=== PATIENT | female | born 1960 | race Caucasian/White ===

== ENCOUNTER 2020-11-09 15:41 | Outpatient (REF) | payer OTHER, SELFPAY ==
--- NOTE | ~2020-11-09 | XR_ITS ---
EXAMINATION: XR HIP, RIGHT CLINICAL INFORMATION: Right hip pain. COMPARISON: Pelvis radiograph 04/04/2015 and right hip 02/16/2015. TECHNIQUE: Two views of the right hip. FINDINGS: Degenerative changes are noted in the right hip with narrowing predominantly superiorly along with sclerosis and osteophytes consistent with degenerative change. Similar findings were present in 2014 but these appear to have progressed slightly with slightly more joint space narrowing. No fractures or bony destructive lesions seen. XR/XR hip RT min 2V IMPRESSION: Slight worsening of degenerative changes, right hip.
[2020-11-09 16:37] LABS: Glucose Urine UA NEG (NEG); Leukocyte Esterase Urine NEG (NEG); Nitrite Urine NEG (NEG); PH 7.5 (5.0-8.0); Urine Blood NEG (NEG); Urine Ketones NEG (NEG); Urine Protein NEG (NEG-TRACE)
[2020-11-09 16:43] LABS: Appearance Urine CLEAR; Color Urine YELLOW
== END 2020-11-09 15:42 | disposition home or self-care (01) ==
LOC: HO.LAB 15:41
PROVIDERS: PCP Internal Medicine; Visit Provider Internal Medicine
DX: M25.551 Pain in right hip (principal); R30.0 Dysuria; Z87.898 Personal history of other specified conditions
CPT/HCPCS: 73502; 81003; 87086

== ENCOUNTER 2020-11-16 17:38 | Outpatient (REF) | payer OTHER, SELFPAY ==
[2020-11-16 18:18] LABS: MANUAL DIFF FLAG NO
[2020-11-16 18:20] LABS: Basophils Percent Auto 0.4 % (0-2); Eosinophils Absolute Auto 0.2 X10*3/uL (0.0-0.4); Hematocrit 35.9 % (37-47); Hemoglobin 12.3 g/dl (12.0-16.0); Imm Gran Abs Auto 0.01 X10*3/uL (0.00-0.03); Imm Gran Pct Auto 0.1 % (0.0-0.4); Lymphocytes Absolute Auto 2.3 X10*3/uL (1.2-4.9); Lymphocytes Percent Auto 30.7 % (20-40); Mean Corpuscular HGB Conc 34.3 g/dl (31.0-35.0); Mean Corpuscular Hemoglobin 30.8 pg (27.0-33.0); Mean Platelet Volume 11.1 fL (9.4-12.3); Monocytes Absolute Auto 0.5 X10*3/uL (0.1-1.2); Monocytes Percent Auto 6.9 % (2-11); Neutrophils Absolute Auto 4.4 X10*3/uL (2.0-8.3); Neutrophils Percent Auto 59.9 % (45-73); Platelet Count 273 X10*3/uL (160-400); Red Blood Count 3.99 X10*6/uL (4.20-5.50); Red Cell Distribution Width 13.1 % (11.0-16.0); White Blood Count 7.4 X10*3/uL (4.8-10.8)
[2020-11-16 18:46] LABS: Alanine Aminotransferase 11 U/L (0-31); Albumin Level 3.9 g/dL (3.5-5.0); Alkaline Phosphatase 34 U/L (39-117); Anion Gap 15 (12-20); Aspartate Amino Transferase 14 U/L (5-31); Bilirubin Total 0.4 mg/dL (0.0-1.0); Blood Urea Nitrogen 16 mg/dL (9-16); Calcium 9.5 mg/dL (8.4-10.2); Carbon Dioxide 26 mmol/L (22-29); Chloride 102 mmol/L (96-108); Estimated Glomerular Filt Rate 57; Glucose Random 85 mg/dL (60-115); Potassium 4.7 mmol/L (3.3-5.1); Sodium 138 mmol/L (135-145)
[2020-11-16 19:08] LABS: T4 Thyroxine 12.4 ug/dL (4.5-12.0); Thyroid Stimulating Hormone 1.13 uIU/mL (0.32-4.0)
[2020-11-18 07:12] LABS: Thyroid Peroxidase Antibodies 13 IU/mL (<9)
== END 2020-11-16 17:39 | disposition home or self-care (01) ==
LOC: HO.LAB 17:38
PROVIDERS: PCP Internal Medicine; Visit Provider Internal Medicine
DX: R53.83 Other fatigue (principal); E03.9 Hypothyroidism, unspecified; E06.3 Autoimmune thyroiditis; N18.9 Chronic kidney disease, unspecified
CPT/HCPCS: 36415; 80053; 84436; 84443; 84481; 85025; 86376

== ENCOUNTER 2020-11-19 10:02 | Outpatient (REF) | payer OTHER, SELFPAY ==
[2020-11-19 12:01] LABS: Free T4 (Free Thyroxine) 1.24 ng/dL (0.71-1.85)
== END 2020-11-19 10:03 | disposition home or self-care (01) ==
LOC: HO.LAB 10:02
PROVIDERS: PCP Internal Medicine; Visit Provider Internal Medicine
DX: E03.9 Hypothyroidism, unspecified (principal)
CPT/HCPCS: 36415; 84439

== ENCOUNTER 2021-01-04 13:20 | Outpatient (REF) | payer OTHER, SELFPAY ==
[2021-01-04 14:50] LABS: Free T4 (Free Thyroxine) 0.95 ng/dL (0.71-1.85); Thyroid Stimulating Hormone 0.19 uIU/mL (0.32-4.0)
[2021-01-06 21:41] LABS: Triiodothyronine T3 Free 2.3 pg/mL (2.3-4.2)
== END 2021-01-04 13:21 | disposition home or self-care (01) ==
LOC: HO.LAB 13:20
PROVIDERS: PCP Internal Medicine; Visit Provider Internal Medicine
DX: E03.9 Hypothyroidism, unspecified (principal)
CPT/HCPCS: 36415; 84439; 84443; 84481

== ENCOUNTER → 2021-03-16 10:57 | Outpatient (BNVA) | payer OTHER, SELFPAY | PROVIDERS: PCP Internal Medicine; Referring Provider Internal Medicine; Visit Provider Surgery ==

== ENCOUNTER 2021-04-26 | Outpatient (REF) | payer OTHER, SELFPAY ==
--- NOTE | ~2021-04-26 | XR_ITS ---
EXAMINATION: XR CHEST CLINICAL INFORMATION: Shortness of breath COMPARISON: Previous chest x-ray JulyJuly 2016 TECHNIQUE: 2 views of the chest were obtained. FINDINGS: No significant abnormality is noted involving the heart, lungs, mediastinum, bony thorax or soft tissues. XR/XR chest 2V IMPRESSION: Unremarkable examination.
[2021-04-26 08:28] LABS: Basophils Percent Auto 0.5 % (0-2); Hemoglobin 12.8 g/dl (12.0-16.0); MANUAL DIFF FLAG SCAN; PLT CLUMP 1; Red Cell Distribution Width 13.1 % (11.0-16.0); SCAN SMEAR FLAG 1
[2021-04-26 08:30] LABS: Eosinophils Absolute Auto 0.2 X10*3/uL (0.0-0.4); Eosinophils Percent Auto 2.5 % (0-4); Hematocrit 38.1 % (37.0-47.0); Imm Gran Abs Auto 0.03 X10*3/uL (0.00-0.03); Imm Gran Pct Auto 0.4 % (0.0-0.4); Lymphocytes Percent Auto 24.1 % (20-40); Mean Corpuscular HGB Conc 33.6 g/dl (31.0-35.0); Mean Corpuscular Hemoglobin 30.5 pg (27.0-33.0); Mean Corpuscular Volume 90.7 fL (80.0-98.0); Monocytes Absolute Auto 0.6 X10*3/uL (0.1-1.2); Monocytes Percent Auto 6.7 % (2-11); Neutrophils Absolute Auto 5.4 x10*3/uL (2.0-8.3); Neutrophils Percent Auto 65.8 % (45-73); Platelet Count 286 X10*3/uL (160-400); White Blood Count 8.2 X10*3/uL (4.8-10.8)
[2021-04-26 08:50] LABS: Cholesterol 222 mg/dL; HDL Cholesterol 57 mg/dL; LDL Cholesterol Calculated 127 mg/dl; Triglycerides 190 mg/dL
[2021-04-26 09:14] LABS: Free T4 (Free Thyroxine) 1.21 ng/dL (0.71-1.85); Thyroid Stimulating Hormone 1.85 uIU/mL (0.32-4.0)
[2021-04-27 11:36] LABS: Thyroid Peroxidase Antibodies 12 IU/mL (<9)
[2021-04-27 18:17] LABS: Triiodothyronine T3 Free 2.1 pg/mL (2.3-4.2)
== END 2021-04-26 00:01 | disposition home or self-care (01) ==
LOC: HO.LAB
PROVIDERS: PCP Internal Medicine; Visit Provider Internal Medicine
DX: E03.9 Hypothyroidism, unspecified (principal); R06.02 Shortness of breath
CPT/HCPCS: 36415; 71046; 80061; 84439; 84443; 84481; 85025; 86376

== ENCOUNTER 2021-05-26 13:57 | Outpatient (REF) | payer OTHER, SELFPAY ==
[2021-05-26 15:23] LABS: Alanine Aminotransferase 12 U/L (0-31); Alkaline Phosphatase 34 U/L (39-117); Anion Gap 14 (12-20); Aspartate Amino Transferase 14 U/L (5-31); Bilirubin Total 0.3 mg/dL (0.0-1.0); Blood Urea Nitrogen 15 mg/dL (9-16); Calcium 9.6 mg/dL (8.4-10.2); Carbon Dioxide 29 mmol/L (22-29); Chloride 102 mmol/L (96-108); Estimated Glomerular Filt Rate 59; Glucose Random 95 mg/dL (60-115); Potassium 4.5 mmol/L (3.3-5.1); Sodium 140 mmol/L (135-145); Total Protein 7.5 g/dL (6.5-8.0)
[2021-05-27 15:31] LABS: Triiodothyronine T3 Free 2.2 pg/mL (2.3-4.2)
== END 2021-05-26 13:58 | disposition home or self-care (01) ==
LOC: HO.LAB 13:57
PROVIDERS: PCP Internal Medicine; Visit Provider Internal Medicine
DX: K21.9 Gastro-esophageal reflux disease without esophagitis (principal); E03.9 Hypothyroidism, unspecified; N18.9 Chronic kidney disease, unspecified
CPT/HCPCS: 36415; 80053; 84481

== ENCOUNTER 2021-09-28 07:28 | Outpatient (REF) | payer BC, SELFPAY ==
[2021-09-28 07:44] LABS: MANUAL DIFF FLAG NO
[2021-09-28 08:07] LABS: Basophils Percent Auto 0.5 % (0-2); Eosinophils Absolute Auto 0.2 X10*3/uL (0.0-0.4); Eosinophils Percent Auto 1.9 % (0-4); Hematocrit 37.5 % (37.0-47.0); Hemoglobin 12.4 g/dl (12.0-16.0); Imm Gran Abs Auto 0.03 X10*3/uL (0.00-0.03); Imm Gran Pct Auto 0.4 % (0.0-0.4); Lymphocytes Absolute Auto 2.1 X10*3/uL (1.2-4.9); Lymphocytes Percent Auto 26.3 % (20-40); Mean Corpuscular HGB Conc 33.1 g/dl (31.0-35.0); Mean Corpuscular Volume 90.6 fL (80.0-98.0); Monocytes Absolute Auto 0.6 X10*3/uL (0.1-1.2); Monocytes Percent Auto 6.9 % (2-11); Neutrophils Absolute Auto 5.1 x10*3/uL (2.0-8.3); Platelet Count 257 X10*3/uL (160-400); Red Blood Count 4.14 X10*6/uL (4.20-5.50); Red Cell Distribution Width 13.2 % (11.0-16.0)
[2021-09-28 08:33] LABS: Alanine Aminotransferase 16 U/L (0-31); Albumin Level 3.7 g/dL (3.5-5.0); Alkaline Phosphatase 33 U/L (39-117); Anion Gap 14 (12-20); Aspartate Amino Transferase 13 U/L (5-31); Bilirubin Total 0.5 mg/dL (0.0-1.0); Blood Urea Nitrogen 12 mg/dL (9-16); Calcium 9.5 mg/dL (8.4-10.2); Carbon Dioxide 27 mmol/L (22-29); Chloride 104 mmol/L (96-108); Cholesterol 220 mg/dL; Estimated Glomerular Filt Rate 56; Glucose Fasting 90 mg/dL (60-99); HDL Cholesterol 54 mg/dL; LDL Cholesterol Calculated 110 mg/dl; Potassium 4.9 mmol/L (3.3-5.1); Sodium 140 mmol/L (135-145); Total Protein 7.1 g/dL (6.5-8.0); Triglycerides 284 mg/dL
[2021-09-28 08:56] LABS: Free T4 (Free Thyroxine) 1.35 ng/dL (0.71-1.85); Thyroid Stimulating Hormone 1.68 uIU/mL (0.32-4.0)
[2021-09-30 03:07] LABS: Triiodothyronine T3 Free 2.4 pg/mL (2.3-4.2)
== END 2021-09-28 07:29 | disposition home or self-care (01) ==
LOC: HO.LAB 07:28
PROVIDERS: PCP Internal Medicine; Visit Provider Internal Medicine
DX: Z00.00 Encounter for general adult medical examination without abnormal findings (principal); E03.9 Hypothyroidism, unspecified
CPT/HCPCS: 36415; 80053; 80061; 84439; 84443; 84481; 85025

== ENCOUNTER 2022-02-16 11:42 | Outpatient (REF) | payer BC, SELFPAY ==
[2022-02-16 13:38] LABS: MANUAL DIFF FLAG NO
[2022-02-16 13:41] LABS: Basophils Absolute Auto 0.1 X10*3/uL (0.0-0.2); Basophils Percent Auto 0.6 % (0-2); Eosinophils Absolute Auto 0.2 X10*3/uL (0.0-0.4); Eosinophils Percent Auto 1.6 % (0-4); Hematocrit 37.3 % (37.0-47.0); Hemoglobin 12.6 g/dl (12.0-16.0); Imm Gran Abs Auto 0.04 X10*3/uL (0.00-0.03); Imm Gran Pct Auto 0.3 % (0.0-0.4); Lymphocytes Absolute Auto 2.2 X10*3/uL (1.2-4.9); Lymphocytes Percent Auto 18.6 % (20-40); Mean Corpuscular HGB Conc 33.8 g/dl (31.0-35.0); Mean Corpuscular Hemoglobin 30.6 pg (27.0-33.0); Mean Corpuscular Volume 90.5 fL (80.0-98.0); Mean Platelet Volume 11.9 fL (9.4-12.3); Monocytes Absolute Auto 0.8 X10*3/uL (0.1-1.2); Neutrophils Absolute Auto 8.3 x10*3/uL (2.0-8.3); Neutrophils Percent Auto 71.9 % (45-73); Platelet Count 260 X10*3/uL (160-400); Red Blood Count 4.12 X10*6/uL (4.20-5.50); Red Cell Distribution Width 13.2 % (11.0-16.0); White Blood Count 11.6 X10*3/uL (4.8-10.8)
[2022-02-16 13:48] LABS: Strep A Nucleic Acid Negative (Negative)
[2022-02-16 14:10] LABS: Alanine Aminotransferase 10 U/L (0-31); Albumin Level 3.9 g/dL (3.5-5.0); Alkaline Phosphatase 37 U/L (39-117); Anion Gap 16 (12-20); Aspartate Amino Transferase 14 U/L (5-31); Bilirubin Total 0.5 mg/dL (0.0-1.0); Blood Urea Nitrogen 13 mg/dL (9-16); C Reactive Protein 5.42 mg/dL (< or = 0.50); Calcium 9.1 mg/dL (8.4-10.2); Carbon Dioxide 25 mmol/L (22-29); Chloride 101 mmol/L (96-108); Estimated Glomerular Filt Rate 52; Glucose Random 77 mg/dL (60-115); Potassium 5.3 mmol/L (3.3-5.1); Sodium 137 mmol/L (135-145); Total Protein 7.4 g/dL (6.5-8.0)
[2022-02-16 14:31] LABS: Free T4 (Free Thyroxine) 1.34 ng/dL (0.71-1.85)
== END 2022-02-16 11:43 | disposition home or self-care (01) ==
LOC: HO.10HDL 11:42
PROVIDERS: Visit Provider Internal Medicine
DX: R53.83 Other fatigue (principal); K13.70 Unspecified lesions of oral mucosa
CPT/HCPCS: 36415; 80053; 84439; 84443; 85025; 86140; 87255; 87651

== ENCOUNTER 2022-05-29 07:55 | Outpatient (REF) | payer BC, SELFPAY ==
[2022-05-29 10:51] LABS: MANUAL DIFF FLAG NO
[2022-05-29 11:03] LABS: Basophils Absolute Auto 0.1 X10*3/uL (0.0-0.2); Basophils Percent Auto 0.8 % (0-2); Eosinophils Absolute Auto 0.2 X10*3/uL (0.0-0.4); Eosinophils Percent Auto 2.6 % (0-4); Hematocrit 36.8 % (37.0-47.0); Hemoglobin 12.2 g/dl (12.0-16.0); Imm Gran Abs Auto 0.03 X10*3/uL (0.00-0.03); Imm Gran Pct Auto 0.4 % (0.0-0.4); Mean Corpuscular HGB Conc 33.2 g/dl (31.0-35.0); Mean Corpuscular Hemoglobin 30.7 pg (27.0-33.0); Mean Corpuscular Volume 92.5 fL (80.0-98.0); Mean Platelet Volume 11.6 fL (9.4-12.3); Monocytes Absolute Auto 0.6 X10*3/uL (0.1-1.2); Monocytes Percent Auto 6.9 % (2-11); Neutrophils Absolute Auto 5.1 x10*3/uL (2.0-8.3); Neutrophils Percent Auto 64.3 % (45-73); Platelet Count 259 X10*3/uL (160-400); Red Blood Count 3.98 X10*6/uL (4.20-5.50); Red Cell Distribution Width 13.4 % (11.0-16.0)
[2022-05-29 11:47] LABS: Alanine Aminotransferase 13 U/L (0-31); Albumin Level 3.6 g/dL (3.5-5.0); Alkaline Phosphatase 33 U/L (39-117); Anion Gap 12 (12-20); Aspartate Amino Transferase 13 U/L (5-31); Bilirubin Total 0.3 mg/dL (0.0-1.0); Blood Urea Nitrogen 12 mg/dL (9-16); Carbon Dioxide 27 mmol/L (22-29); Chloride 106 mmol/L (96-108); Cholesterol 218 mg/dL; Estimated Glomerular Filt Rate > 60; Free T4 (Free Thyroxine) 1.34 ng/dL (0.71-1.85); Glucose Fasting 93 mg/dL (60-99); HDL Cholesterol 46 mg/dL; LDL Cholesterol Calculated 109 mg/dl; Potassium 5.1 mmol/L (3.3-5.1); Sodium 140 mmol/L (135-145); Thyroid Stimulating Hormone 0.79 uIU/mL (0.32-4.0); Total Protein 6.8 g/dL (6.5-8.0); Triglycerides 318 mg/dL
[2022-05-31 10:12] LABS: Triiodothyronine T3 Free 2.7 pg/mL (2.3-4.2)
== END 2022-05-29 07:56 | disposition home or self-care (01) ==
LOC: HO.10HDL 07:55
PROVIDERS: Visit Provider Internal Medicine
DX: Z00.00 Encounter for general adult medical examination without abnormal findings (principal); E03.9 Hypothyroidism, unspecified
CPT/HCPCS: 36415; 80053; 80061; 84439; 84443; 84481; 85025

== ENCOUNTER 2022-09-11 08:30 | Outpatient (REF) | payer BC, SELFPAY ==
[2022-09-11 10:59] LABS: MANUAL DIFF FLAG NO
[2022-09-11 11:12] LABS: Basophils Absolute Auto 0.1 X10*3/uL (0.0-0.2); Basophils Percent Auto 0.7 % (0-2); Eosinophils Absolute Auto 0.1 X10*3/uL (0.0-0.4); Eosinophils Percent Auto 1.8 % (0-4); Hematocrit 38.5 % (37.0-47.0); Hemoglobin 12.8 g/dl (12.0-16.0); Imm Gran Abs Auto 0.02 X10*3/uL (0.00-0.03); Imm Gran Pct Auto 0.3 % (0.0-0.4); Lymphocytes Absolute Auto 1.7 X10*3/uL (1.2-4.9); Lymphocytes Percent Auto 26.1 % (20-40); Mean Corpuscular HGB Conc 33.2 g/dl (31.0-35.0); Mean Corpuscular Hemoglobin 30.8 pg (27.0-33.0); Mean Corpuscular Volume 92.5 fL (80.0-98.0); Mean Platelet Volume 11.3 fL (9.4-12.3); Monocytes Absolute Auto 0.4 X10*3/uL (0.1-1.2); Neutrophils Absolute Auto 4.3 x10*3/uL (2.0-8.3); Neutrophils Percent Auto 65.1 % (45-73); Platelet Count 280 X10*3/uL (160-400); Red Blood Count 4.16 X10*6/uL (4.20-5.50); Red Cell Distribution Width 13.2 % (11.0-16.0); White Blood Count 6.7 X10*3/uL (4.8-10.8)
[2022-09-11 12:09] LABS: Alanine Aminotransferase 14 U/L (0-31); Albumin Level 3.8 g/dL (3.5-5.0); Alkaline Phosphatase 38 U/L (39-117); Anion Gap 12 (12-20); Aspartate Amino Transferase 14 U/L (5-31); Bilirubin Total 0.6 mg/dL (0.0-1.0); Blood Urea Nitrogen 15 mg/dL (9-16); Calcium 9.2 mg/dL (8.4-10.2); Carbon Dioxide 28 mmol/L (22-29); Chloride 107 mmol/L (96-108); Cholesterol 249 mg/dL; Estimated Glomerular Filt Rate 43; Glucose Fasting 100 mg/dL (60-99); HDL Cholesterol 56 mg/dL; LDL Cholesterol Calculated 146 mg/dl; Potassium 4.7 mmol/L (3.3-5.1); Sodium 142 mmol/L (135-145); Thyroid Stimulating Hormone 0.71 uIU/mL (0.32-4.0); Total Protein 7.1 g/dL (6.5-8.0); Triglycerides 236 mg/dL
[2022-09-13 16:23] LABS: Triiodothyronine T3 Free 2.6 pg/mL (2.3-4.2)
== END 2022-09-11 08:31 | disposition home or self-care (01) ==
LOC: HO.10HDL 08:30
PROVIDERS: Visit Provider Internal Medicine
DX: Z00.00 Encounter for general adult medical examination without abnormal findings (principal); Z20.2 Contact with and (suspected) exposure to infections with a predominantly sexual mode of transmission
CPT/HCPCS: 36415; 80053; 80061; 84443; 84481; 85025

== ENCOUNTER 2023-02-06 09:22 | Outpatient (REF) | payer BC, SELFPAY ==
[2023-02-06 10:15] LABS: MANUAL DIFF FLAG NO
[2023-02-06 10:19] LABS: Basophils Absolute Auto 0.1 X10*3/uL (0.0-0.2); Basophils Percent Auto 0.7 % (0-2); Eosinophils Absolute Auto 0.2 X10*3/uL (0.0-0.4); Hematocrit 39.4 % (37.0-47.0); Hemoglobin 12.9 g/dl (12.0-16.0); Imm Gran Abs Auto 0.01 X10*3/uL (0.00-0.03); Imm Gran Pct Auto 0.1 % (0.0-0.4); Lymphocytes Absolute Auto 2.3 X10*3/uL (1.2-4.9); Mean Corpuscular HGB Conc 32.7 g/dl (31.0-35.0); Mean Corpuscular Hemoglobin 29.1 pg (27.0-33.0); Mean Corpuscular Volume 88.7 fL (80.0-98.0); Mean Platelet Volume 11.3 fL (9.4-12.3); Monocytes Absolute Auto 0.4 X10*3/uL (0.1-1.2); Monocytes Percent Auto 5.7 % (2-11); Neutrophils Absolute Auto 4.5 x10*3/uL (2.0-8.3); Neutrophils Percent Auto 60.5 % (45-73); Platelet Count 289 X10*3/uL (160-400); Red Blood Count 4.44 X10*6/uL (4.20-5.50); Red Cell Distribution Width 14.7 % (11.0-16.0); White Blood Count 7.4 X10*3/uL (4.8-10.8)
[2023-02-06 10:54] LABS: Alanine Aminotransferase 10 U/L (0-31); Albumin Level 3.8 g/dL (3.5-5.0); Alkaline Phosphatase 42 U/L (39-117); Anion Gap 12 (12-20); Aspartate Amino Transferase 12 U/L (5-31); Bilirubin Total 0.5 mg/dL (0.0-1.0); Blood Urea Nitrogen 10 mg/dL (9-16); C Reactive Protein 1.21 mg/dL (< or = 0.50); Calcium 9.6 mg/dL (8.4-10.2); Carbon Dioxide 26 mmol/L (22-29); Chloride 107 mmol/L (96-108); Cholesterol 211 mg/dL (<200); Estimated Glomerular Filt Rate > 60; Glucose Fasting 95 mg/dL (60-99); HDL Cholesterol 55 mg/dL (>40); LDL Cholesterol Calculated 121 mg/dL (<100); Potassium 4.9 mmol/L (3.3-5.1); Sodium 140 mmol/L (135-145); Total Protein 7.9 g/dL (6.5-8.0); Triglycerides 178 mg/dL (<150)
[2023-02-06 11:03] LABS: Erythrocyte Sedimentation Rate 23 MM/HR (0-20); Free T4 (Free Thyroxine) 1.29 ng/dL (0.71-1.85); Thyroid Stimulating Hormone 0.08 uIU/mL (0.32-4.0)
[2023-02-06 11:09] LABS: Vitamin B12 389 pg/mL (200-900)
[2023-02-08 10:09] LABS: Triiodothyronine T3 Free 2.8 pg/mL (2.3-4.2)
== END 2023-02-06 09:23 | disposition home or self-care (01) ==
LOC: HO.10HDL 09:22
PROVIDERS: Visit Provider Internal Medicine
DX: R53.83 Other fatigue (principal); E03.9 Hypothyroidism, unspecified
CPT/HCPCS: 36415; 80053; 80061; 82550; 82607; 84439; 84443; 84481; 85025; 85652; 86140

== ENCOUNTER 2023-06-21 14:07 | Outpatient (REF) | payer OTHER, SELFPAY ==
[2023-06-24 03:03] LABS: Triiodothyronine T3 Free 2.9 pg/mL (2.3-4.2)
== END 2023-06-21 14:08 | disposition home or self-care (01) ==
LOC: HO.LAB 14:07
PROVIDERS: PCP Internal Medicine; Visit Provider Internal Medicine
DX: E03.9 Hypothyroidism, unspecified (principal)
CPT/HCPCS: 36415; 84439; 84443; 84481

== ENCOUNTER 2023-10-10 08:45 | Outpatient (REF) | payer OTHER, SELFPAY ==
[2023-10-10 10:46] LABS: MANUAL DIFF FLAG NO
[2023-10-10 10:53] LABS: Basophils Absolute Auto 0.1 X10*3/uL (0.0-0.2); Basophils Percent Auto 0.8 % (0-2); Eosinophils Absolute Auto 0.1 X10*3/uL (0.0-0.4); Eosinophils Percent Auto 1.8 % (0-4); Hematocrit 37.8 % (37.0-47.0); Hemoglobin 12.7 g/dl (12.0-16.0); Imm Gran Abs Auto 0.01 X10*3/uL (0.00-0.03); Imm Gran Pct Auto 0.2 % (0.0-0.4); Lymphocytes Absolute Auto 1.8 X10*3/uL (1.2-4.9); Lymphocytes Percent Auto 27.8 % (20-40); Mean Corpuscular HGB Conc 33.6 g/dl (31.0-35.0); Mean Corpuscular Hemoglobin 30.2 pg (27.0-33.0); Monocytes Absolute Auto 0.5 X10*3/uL (0.1-1.2); Monocytes Percent Auto 7.3 % (2-11); Neutrophils Absolute Auto 4.1 x10*3/uL (2.0-8.3); Neutrophils Percent Auto 62.1 % (45-73); Platelet Count 245 X10*3/uL (160-400); Red Cell Distribution Width 13.1 % (11.0-16.0); White Blood Count 6.6 X10*3/uL (4.8-10.8)
[2023-10-10 11:24] LABS: Alanine Aminotransferase 12 U/L (0-31); Albumin Level 3.7 g/dL (3.5-5.0); Alkaline Phosphatase 38 U/L (39-117); Anion Gap 9 (12-20); Aspartate Amino Transferase 12 U/L (5-31); Bilirubin Total 0.5 mg/dL (0.0-1.0); Blood Urea Nitrogen 11 mg/dL (9-16); C Reactive Protein 0.61 mg/dL (< or = 0.50); Calcium 8.9 mg/dL (8.4-10.2); Carbon Dioxide 28 mmol/L (22-29); Chloride 107 mmol/L (96-108); Cholesterol 209 mg/dL (<200); Estimated Glomerular Filt Rate > 60; Glucose Random 92 mg/dL (60-115); Potassium 4.8 mmol/L (3.3-5.1); Sodium 139 mmol/L (135-145); Total Protein 7.3 g/dL (6.5-8.0)
== END 2023-10-10 08:46 | disposition home or self-care (01) ==
LOC: HO.10HDL 08:45
PROVIDERS: Visit Provider Internal Medicine
DX: E03.9 Hypothyroidism, unspecified (principal)
CPT/HCPCS: 36415; 80053; 82465; 84439; 84443; 85025; 86140

== ENCOUNTER 2023-11-01 08:29 | Outpatient (REF) | payer OTHER, SELFPAY ==
[2023-11-01 10:58] LABS: Appearance Urine Clear; Color Urine Yellow; Glucose Urine UA Negative (Negative); Leukocyte Esterase Urine Moderate (2+) (Negative); Nitrite Urine Negative (Negative); PH 6.5 (5.0-9.0); Specific Gravity - Urine 1.015 (1.005-1.025); UMIC TRIGGER UACC YES; Urine Blood Negative (Negative); Urine Ketones Negative (Negative); Urine Protein Negative (Neg-Trace)
[2023-11-01 11:04] LABS: Bacteria Urine 4+ (None Seen); Hyaline Casts Urine 0-2 /LPF (0-2); RBC Urine 0-2 /HPF (0-2); Squamous Epithelial Cell Urine 0-2 /HPF (0-2); UACC Culture Trigger YES; WBC Urine 21-50 /HPF (0-5)
[2023-11-01 11:50] LABS: Prostate Specific Antigen Scr < 0.10 ng/mL
== END 2023-11-01 08:30 | disposition home or self-care (01) ==
LOC: HO.10HDL 08:29
PROVIDERS: Visit Provider Internal Medicine
DX: R30.0 Dysuria (principal); R35.1 Nocturia
CPT/HCPCS: 36415; 81001; 84153; 87086; 87088; 87186

== ENCOUNTER 2024-03-03 16:14 | Outpatient (REF) | payer OTHER, SELFPAY ==
--- NOTE | ~2024-03-03 | XR_ITS ---
EXAMINATION: XR CHEST CLINICAL INFORMATION: Shortness of breath for 2 months COMPARISON: Radiographs 04/26/2021 TECHNIQUE: 2 views of the chest were obtained. FINDINGS: No focal consolidation, pulmonary edema, or pleural effusion. Stable cardiomediastinal silhouette. XR/XR chest 2V IMPRESSION: No acute cardiopulmonary findings. Electronically signed by: Damon Santillan MD 03/17/2024 08:38 AM EDT
[2024-03-03 16:33] LABS: MANUAL DIFF FLAG NO
[2024-03-03 17:42] LABS: Basophils Absolute Auto 0.1 X10*3/uL (0.0-0.2); Basophils Percent Auto 0.6 % (0-2); Eosinophils Absolute Auto 0.1 X10*3/uL (0.0-0.4); Eosinophils Percent Auto 1.2 % (0-4); Hematocrit 39.2 % (37.0-47.0); Hemoglobin 13.1 g/dl (12.0-16.0); Imm Gran Abs Auto 0.03 X10*3/uL (0.00-0.03); Imm Gran Pct Auto 0.3 % (0.0-0.4); Lymphocytes Absolute Auto 2.1 X10*3/uL (1.2-4.9); Lymphocytes Percent Auto 23.8 % (20-40); Mean Corpuscular HGB Conc 33.4 g/dl (31.0-35.0); Mean Corpuscular Hemoglobin 30.5 pg (27.0-33.0); Mean Corpuscular Volume 91.2 fL (80.0-98.0); Mean Platelet Volume 11.4 fL (9.4-12.3); Monocytes Absolute Auto 0.6 X10*3/uL (0.1-1.2); Monocytes Percent Auto 7.2 % (2-11); Neutrophils Percent Auto 66.9 % (45-73); Platelet Count 254 X10*3/uL (160-400); Red Cell Distribution Width 13.3 % (11.0-16.0); White Blood Count 8.9 X10*3/uL (4.8-10.8)
[2024-03-03 18:00] LABS: Alanine Aminotransferase 10 U/L (0-31); Albumin Level 4.1 g/dL (3.5-5.0); Alkaline Phosphatase 40 U/L (39-117); Anion Gap 13 (12-20); Aspartate Amino Transferase 12 U/L (5-31); Bilirubin Total 0.6 mg/dL (0.0-1.0); Blood Urea Nitrogen 22 mg/dL (9-16); C Reactive Protein 1.27 mg/dL (< or = 0.50); Calcium 9.7 mg/dL (8.4-10.2); Carbon Dioxide 28 mmol/L (22-29); Chloride 107 mmol/L (96-108); Estimated Glomerular Filt Rate 46; Glucose Random 88 mg/dL (60-115); Potassium 4.6 mmol/L (3.3-5.1); Sodium 143 mmol/L (135-145)
[2024-03-03 18:18] LABS: Free T4 (Free Thyroxine) 1.18 ng/dL (0.71-1.85); Vitamin B12 415 pg/mL (200-900)
[2024-03-03 21:59] LABS: Erythrocyte Sedimentation Rate 20 MM/HR (0-20)
== END 2024-03-03 16:15 | disposition home or self-care (01) ==
LOC: HO.LAB 16:14
PROVIDERS: PCP Internal Medicine; Visit Provider Internal Medicine
DX: R53.83 Other fatigue (principal); E03.9 Hypothyroidism, unspecified
CPT/HCPCS: 36415; 71046; 80053; 82550; 82607; 84439; 84443; 85025; 85652; 86140

== ENCOUNTER 2024-11-20 09:15 | Outpatient (AMB) | payer MEDICARE, SELFPAY ==
--- NOTE | 2024-11-20 09:14 | MHC.PC.OV ---
Vital Signs 11/20/24 09:17 Height 5 ft 5 in Weight 165 lb BMI 27.5 BP 122/70 Blood Pressure Location Rt brachial Position Sitting Pulse 70 Pulse Source Pulse Oximeter Temp 97.6 F Temp Source Axillary Pulse Oximetry (%) 99 Oxygen Delivery Method Room Air Intake Visit Reasons: Routine - see comments Pediatric Clinical Nurse Specialist Required: No Accompanied by: Spouse Allergies morphine Allergy (Unknown, Verified 11/20/24 09:14) Unknown No Known Allergies [No Known Allergies*] Allergy (Verified 11/20/24 09:14) Tobacco use date assessed: 11/20/24 Fall risk assessment: No Falls in past year Last assessed Fall Risk: 11/20/24 Dental Screening Dental Screen Date: 11/20/24 Did you have a dental visit in the last 12 months?: No Did you have a dental problem in the last 6 months where you did not have access to dental care?: No HPI HPI Comments History of Present Illness Details The patient is a 64 year old female with a past medical history of hypothyroid, insomnia, OA hip s/p RTH replacement, GERD, IBS, colon polyps presenting for follow up Hypothyroid-on brand name synthroid. Intolerant of generic in the past. Last TSH wnl GI: on omeprazole Still suffering from nocturia, polydipsia. Always thirsty. Frequent nightime awakenings colonoscopy 2022-. Would like repeat due to chronic constipation declines mammogram ROS see HPI PHYSICAL EXAM: GENERAL: Alert and oriented x 3. NAD EYES: EOMI. Anicteric. HENT: Moist mucous membranes. No scleral icterus. No cervical lymphadenopathy. LUNGS: Clear to auscultation bilaterally. CARDIOVASCULAR: Regular rate and rhythm. No murmur. No JVD. ABDOMEN: Soft, non-tender +bs EXTREMITIES: No edema. Non-tender. SKIN: No rashes or lesions. Warm. NEUROLOGIC: No focal neurological deficits. CN II-XII grossly intact PSYCHIATRIC: Cooperative. Appropriate mood and affect [facility] Medical History Thrombosed external hemorrhoid Thyroid disease Arthritis Surgical History History of colonoscopy Family History Mother No problems noted. Father No problems noted. Social History Housing: House Patient Tobacco Use Status: Never used Tobacco e-Cigarette/Vaping Use: Never Used service: No Current occupational status: retired Cognitive needs: No Hearing needs: No Vision needs: Yes (rx glasses) Questionnaire PHQ-9 Over the last 2 weeks, how often have you been bothered by any of the following problems? 1. Little interest or pleasure in doing things: not at all 2. Feeling down, depressed, or hopeless: not at all 3. Trouble falling or staying asleep, or sleeping too much: not at all 4. Feeling tired or having little energy: not at all 5. Poor appetite or overeating: not at all 6. Feeling bad about yourself - or that you are a failure or have let yourself or your family down: not at all 7. Trouble concentrating on things, such as reading the newspaper or watching television: not at all 8. Moving or speaking so slowly that other people could have noticed. Or the opposite - being so fidgety or restless that you have been moving around a lot more than usual: not at all 9. Thoughts that you would be better off or of hurting yourself in some way: not at all Total score: 0 Depression Screening Interpretation: Negative Depression Screening Done: Yes 32159 - PHQ-9 Billing: Yes Source: Developed by Drs. Dayo Westbrook, Najma Verdugo, Darron Esposito and colleagues, with an educational toney from [employer]. Thrive Questionnaire Date Thrive assessed: 11/20/24 I am a: Patient Within the past 12 months, did the food you bought not last and you didn't have the money to get more?: Never true Within the past 12 months, did you worry whether your food would run out before you got money to buy more?: Never true Do you have trouble paying for medicines?: No Do you have trouble getting transportation to medical appointments?: No Do you have trouble paying your heating and electricity bill?: No Do you have trouble taking care of your child, family member or friend?: No Do you have trouble with day-to-day activities such as bathing, preparing meals, shopping, managing finances, etc.?: No Are you currently unemployed and looking for a job?: No Are you interested in more education?: No THRIVE Score: 0 AUDIT C Alcohol Use Questionnaire (AUDIT-C) 1. How often do you have a drink containing alcohol?: Monthly or less 2. How many drinks containing alcohol do you have on a typical day when you are drinking?: 1 or 2 3. How often do you have six or more drinks on one occasion?: Less than monthly Total Score: 2 ASHLYN-7 AMB Questionnaire ASHLYN-7 Date ASHLYN - 7 assessed: 11/20/24 Feeling nervous, anxious, or on edge: 0 = Not at all Not being able to stop or control worryin = Not at all Worrying too much about different things: 0 = Not at all Trouble relaxin = Not at all Being so restless that it is hard to sit still: 0 = Not at all Becoming easily annoyed or irritable: 0 = Not at all Feeling afraid as if something awful might happen: 0 = Not at all Total ASHLYN-7 score (0-4 normal; 5-9 mild; 10-14 moderate; 15-21 severe): 0 Source: Developed by Drs. Dayo Westbrook, Najma Verdugo, Darron Esposito and colleagues, with an educational toney from [employer]. Physical exam (Primary Care) Vital Signs: Last Vital Signs Temp 97.6 F 11/20/24 09:17 Pulse 70 11/20/24 09:17 BP 122/70 11/20/24 09:17 Pulse Ox 99 11/20/24 09:17 Oxygen Delivery Method Room Air 11/20/24 09:17 BMI result Body Mass Index 27.5 Tobacco/Smoking Status: Tobacco use Status Tobacco use date assessed 11/20/24 11/20/24 09:16 Patient Tobacco Use Status Never used Tobacco 11/20/24 09:16 e-Cigarette/Vaping Use Never Used 11/20/24 09:27 PHQ-9: PHQ-9 Score PHQ-9: Total score 0 11/20/24 09:16 Depression Screening Interpretation: Negative Thrive Assessment: Date of Thrive Assessment Date Thrive assessed 11/20/24 11/20/24 09:16 Coding Level of Care Code New Pt Level 4 (99283) Complex EM visit Add On G2211 Diagnoses Thyroid disease E07.9 Nocturia R35.1 Polydipsia R63.1 Constipation, unspecified constipation type K59.00 Constipation type: unspecified constipation type Additional Codes PHQ-9 - 61323 - PHQ-9 Billing: Yes ([id number]) Assessment & Plan Assessment & Plan (1) Thyroid disease: Code(s): E07.9 - Disorder of thyroid, unspecified Category: Medical (2) Nocturia: Code(s): R35.1 - Nocturia Category: Medical (3) Polydipsia: Code(s): R63.1 - Polydipsia Category: Medical (4) Constipation: Code(s): K59.00 - Constipation, unspecified Category: Medical Qualifiers: Constipation type: unspecified constipation type Qualified Code(s): K59.00 - Constipation, unspecified Plan 64 year old female presenting to [facility] care Past medical, surgical, social reviewed Nocturia, polydipsia. Check urine studies, sleep study, labs Hypothyroid-stable on synthroid Declines mammogram Orders: Orders Complete Blood Count Auto Diff Today E07.9 - Disorder of thyroid, unspecified, K59.00 - Constipation, unspecified, R35.1 - Nocturia, R63.1 - Polydipsia, Z13.220 - Encounter for screening for lipoid disorders Thyroid Peroxidase Antibodies Today E07.9 - Disorder of thyroid, unspecified, K59.00 - Constipation, unspecified, R35.1 - Nocturia, R63.1 - Polydipsia, Z13.220 - Encounter for screening for lipoid disorders Triiodothyronine T3 Free Today E07.9 - Disorder of thyroid, unspecified, K59.00 - Constipation, unspecified, R35.1 - Nocturia, R63.1 - Polydipsia, Z13.220 - Encounter for screening for lipoid disorders Triiodothyronine T3 Total Today E07.9 - Disorder of thyroid, unspecified, K59.00 - Constipation, unspecified, R35.1 - Nocturia, R63.1 - Polydipsia, Z13.220 - Encounter for screening for lipoid disorders Thyroid Stimulating Hormone Today E07.9 - Disorder of thyroid, unspecified, K59.00 - Constipation, unspecified, R35.1 - Nocturia, R63.1 - Polydipsia, Z13.220 - Encounter for screening for lipoid disorders Sodium, 24Hr Urine Group Today E07.9 - Disorder of thyroid, unspecified, K59.00 - Constipation, unspecified, R35.1 - Nocturia, R63.1 - Polydipsia, Z13.220 - Encounter for screening for lipoid disorders Creatinine Clearance Urine 24U Today E07.9 - Disorder of thyroid, unspecified, K59.00 - Constipation, unspecified, R35.1 - Nocturia, R63.1 - Polydipsia, Z13.220 - Encounter for screening for lipoid disorders RT home sleep study Today R35.1 - Nocturia, R63.1 - Polydipsia Comprehensive Met. Panel Today E07.9 - Disorder of thyroid, unspecified, K59.00 - Constipation, unspecified, R35.1 - Nocturia, R63.1 - Polydipsia, Z13.220 - Encounter for screening for lipoid disorders Osmolality, Serum Today E07.9 - Disorder of thyroid, unspecified, K59.00 - Constipation, unspecified, R35.1 - Nocturia, R63.1 - Polydipsia, Z13.220 - Encounter for screening for lipoid disorders Osmolality Urine Today E07.9 - Disorder of thyroid, unspecified, K59.00 - Constipation, unspecified, R35.1 - Nocturia, R63.1 - Polydipsia, Z13.220 - Encounter for screening for lipoid disorders Free T4 (Free Thyroxine) Today E07.9 - Disorder of thyroid, unspecified, K59.00 - Constipation, unspecified, R35.1 - Nocturia, R63.1 - Polydipsia, Z13.220 - Encounter for screening for lipoid disorders LDL Cholesterol Direct Today E07.9 - Disorder of thyroid, unspecified, K59.00 - Constipation, unspecified, R35.1 - Nocturia, R63.1 - Polydipsia, Z13.220 - Encounter for screening for lipoid disorders Hemoglobin A1c Today E07.9 - Disorder of thyroid, unspecified, K59.00 - Constipation, unspecified, R35.1 - Nocturia, R63.1 - Polydipsia, Z13.220 - Encounter for screening for lipoid disorders Medications: New levothyroxine (Synthroid) 150 mcg PO 6XW 72 tabs 3RF Zepbound (tirzepatide (weight loss)) for 4 weeks 2.5 mg (0.5 mL) subcut QWEEK 2 mL 0RF NS E66.3 - Overweight Changed From levothyroxine (Synthroid) 150 mcg PO 6XW 72 tabs 3RF To Synthroid (levothyroxine) KAHLIL 150 mcg PO 6XW 72 tabs 3RF NS
[2024-11-20 09:17] VITALS: BP 122/70; PULSE 70; TEMP 36.4; O2SAT 99; BMI 27.5
== END 2024-11-20 11:23 | disposition home or self-care (01) ==
LOC: HO.HMCHD 09:16
PROVIDERS: PCP Internal Medicine; Visit Provider Internal Medicine
DX: E07.9 Disorder of thyroid, unspecified (principal); R35.1 Nocturia; R63.1 Polydipsia; K59.00 Constipation, unspecified

== ENCOUNTER → 2024-11-20 09:15 | Outpatient (BNVA) | payer MEDICARE, SELFPAY | PROVIDERS: PCP Internal Medicine; Visit Provider Internal Medicine | DX: E03.9 Hypothyroidism, unspecified (principal); K21.9 Gastro-esophageal reflux disease without esophagitis; E07.9 Disorder of thyroid, unspecified; R35.1 Nocturia; R63.1 Polydipsia; K58.1 Irritable bowel syndrome with constipation; Z96.641 Presence of right artificial hip joint | CPT/HCPCS: 96127; 99202 ==

== ENCOUNTER 2024-11-24 07:43 | Outpatient (REF) | payer MEDICARE, SELFPAY ==
[2024-11-24 09:52] LABS: MANUAL DIFF FLAG NO
[2024-11-24 09:57] LABS: Basophils Absolute Auto 0.1 X10*3/uL (0.0-0.2); Basophils Percent Auto 1.5 % (0-2); Eosinophils Absolute Auto 0.1 X10*3/uL (0.0-0.4); Eosinophils Percent Auto 2.4 % (0-4); Hematocrit 36.6 % (37.0-47.0); Hemoglobin 12.1 g/dl (12.0-16.0); Imm Gran Abs Auto 0.01 X10*3/uL (0.00-0.03); Imm Gran Pct Auto 0.2 % (0.0-0.4); Lymphocytes Absolute Auto 1.8 X10*3/uL (1.2-4.9); Lymphocytes Percent Auto 32.8 % (20-40); Mean Corpuscular HGB Conc 33.1 g/dl (31.0-35.0); Mean Corpuscular Hemoglobin 30.6 pg (27.0-33.0); Mean Corpuscular Volume 92.7 fL (80.0-98.0); Mean Platelet Volume 11.2 fL (9.4-12.3); Monocytes Absolute Auto 0.4 X10*3/uL (0.1-1.2); Monocytes Percent Auto 6.9 % (2-11); Neutrophils Percent Auto 56.2 % (45-73); Platelet Count 213 X10*3/uL (160-400); Red Blood Count 3.95 X10*6/uL (4.20-5.50); Red Cell Distribution Width 13.6 % (11.0-16.0); White Blood Count 5.3 X10*3/uL (4.8-10.8)
[2024-11-24 10:12] LABS: Estimated Average Glucose 103 mg/dL; Hemoglobin A1c % 5.2 % (<6.0)
[2024-11-24 10:20] LABS: Alanine Aminotransferase 15 U/L (0-31); Albumin Level 4.2 g/dL (3.5-5.0); Alkaline Phosphatase 34 U/L (39-117); Anion Gap 9 (12-20); Aspartate Amino Transferase 17 U/L (5-31); Bilirubin Total 0.5 mg/dL (0.0-1.0); Blood Urea Nitrogen 13 mg/dL (9-16); Carbon Dioxide 29 mmol/L (22-29); Chloride 106 mmol/L (96-108); Estimated Glomerular Filt Rate 54; Glucose Random 85 mg/dL (60-115); Potassium 4.2 mmol/L (3.3-5.1); Sodium 140 mmol/L (135-145); Total Protein 7.4 g/dL (6.5-8.0)
[2024-11-24 10:38] LABS: Free T4 (Free Thyroxine) 1.43 ng/dL (0.71-1.85); Thyroid Stimulating Hormone 0.68 uIU/mL (0.32-4.0)
[2024-11-24 10:41] LABS: Osmolality, Serum 292 mosm/kg (281-305)
[2024-11-24 11:18] LABS: Creatinine, mg/dL 44.96
[2024-11-24 13:20] LABS: Creatinine (CrCl) 1.03 mg/dL (0.5-1.4); Creatinine Clearance 72.7 mL/min (85-125); Creatinine, 24Hr Urine 1.1 G/Day (1.0-2.0); Sodium 24 Hr Urine 127.2 mmol/Day (40-220); Total Volume 24 Hour Urine 2400 mL
[2024-11-24 14:25] LABS: Osmolality Urine 480 mosm/kg (373-1093)
[2024-11-25 04:09] LABS: LDL Cholesterol Direct 102 mg/dL (<100)
[2024-11-25 04:28] LABS: Triiodothyronine T3 Free 2.4 pg/mL (2.3-4.2); Triiodothyronine T3 Total 90 ng/dL (76-181)
[2024-11-25 18:09] LABS: Thyroid Peroxidase Antibodies 7 IU/mL (<9)
== END 2024-11-24 07:44 | disposition home or self-care (01) ==
LOC: HO.10HDL 07:43
PROVIDERS: Visit Provider Internal Medicine
DX: E07.9 Disorder of thyroid, unspecified (principal); R35.1 Nocturia; R63.1 Polydipsia; K59.00 Constipation, unspecified; Z13.220 Encounter for screening for lipoid disorders
CPT/HCPCS: 36415; 80053; 82575; 83036; 83721; 83930; 83935; 84300; 84439; 84443; 84480; 84481; 85025; 86376

== ENCOUNTER → 2024-12-17 10:51 | Outpatient (REF) | payer MEDICARE, SELFPAY ==
--- OUTSIDE RECORDS SUMMARY | 2024-12-17 11:41 | XMS_ITS | Data Portability ---
Author Organization [place] - [facility], [facility] Address [address] [place] [address] Care Team Providers Care Optical Store Manager Name Role Phone MAGDIEL FUENTES Referring Provider Assessment No assessment recorded. Plan of Treatment Reminders Order Date Submit Date Provider Last Modified By Organization Details Last Modified Time Details Appointments None recorded. Lab None recorded. Referral None recorded. Procedures None recorded. Surgeries excision hand mass (SURG) 2023 024 [email or web address], [address], [place], [address], 4 09:17:58 Imaging XR, finger(s), 2 or more view - 2v lt index, sanitizer, rm 117 2023 024 [email or web address], [address], [address], [place], [address], 4 12:10:37 Medication Orders None recorded. Patient TargetsNo targets recorded. Patient InstructionsNo instructions recorded. Reason for Referral None Reported. Results Created Date Observation Date Name Description Value Unit Range Abnormal Flag Note LastModifiedBy Organization Detail LastModifiedTime 01/14/20 24 01/14/2024 XR, finge r(s), 2 or more view http:/ [email or web address] ?Encry pted=s hAaTro YD8dLq bEUv6g %2BXZw aYqtaq 0bqfl% 2Fg9IQ a4ajBk vP9nXo QUaueC m3YtLR FvZlgJ JJ8mAn HZtai3 8v6636 AC0Koa HSBWaL eUC8mr 84%3D INTERFACE [facility] [address], [place], [address], 01/14/2024 14:27:19 01/14/20 24 01/14/2024 XR, finge r(s), 2 or more view http:/ [email or web address] ?Encry pted=s hAaTro YD8dLq bEUv6g %2BXZw aYqtaq 0bqfl% 2Fg9IQ a4ajBk vP9nXo QUaueC m3YtLR FvZlgJ JJ8mAn HZtai3 1k6106 AC0Koa HSBWaL eUC8mr 84%3D INTERFACE [facility] [address], [place], [address], 01/14/2024 14:27:21 02/14/20 24 09/01/2021 imagi ng/di agnos tic resul t No observ ation record ed. [email or web address] Not Available 01/17 20:15:59 Result Notes Documentation Provider Name and Address Organization Details Recorded Time Xr, Finger(s), 2 Or More View : [email or web address] Encrypted=bgQwUgoNA5gSbuO Uv6g%0OQCspEwuoc5uehq%2Fg 9RHt7ggAzjC5rVnZYkkiAs8Ms PMWmLbpQEQ1sTsSFhor56y935 7OB1LkaIVZMfRmYY2ki97%3D Not Available [facility] 01/14/2024 14:2 7:20 Xr, Finger(s), 2 Or More View : [email or web address] Encrypted=hrToRvmSN8gTzzY Uv6g%6VHRsqWbhxz2zjcn%2Fg 5GUn0fkKprA0pPvJDgnxCa7Om POTaChaUCF7xUtHBdes88x929 0AF9JjxQKOVtGgVP7oc95%3D Not Available [facility] 01/14/2024 14:2 7:22 Problems Name Problem SNOMED Code Status Onset Date Resolution Date Notes Provider Name and Address Organization Details Recorded Time Pain in finger of left hand 281185948870 105 Active 2023 Madeline Cortez PA-C [address] [place] [address] [address], [place], [address] , [facility] 4 08:18:16 Closed fracture of left lower leg 661322849105 74762 Active 2015 Problem Code: S82.892A ; Problem Code Type: ICD-10; Status: 'A'; Not Available [facility] 4 11:13:31 Traumatic dislocati on of ankle joint 092625360 Active 2015 Problem Code: S93.05XA ; Problem Code Type: ICD-10; Status: 'A'; Not Available [facility] 4 11:13:32 Closed bimalleol ar fracture 19896778 Active 2015 Problem Code: S82.845A ; Problem Code Type: ICD-10; Status: 'A'; Not Available [facility] 4 11:13:32 Closed fracture of left pilon 970773072236 18509 Active 2015 Problem Code: S82.872A ; Problem Code Type: ICD-10; Status: 'A'; Not Available [facility] 4 11:13:32 Closed fracture of lateral malleolus of left fibula 146459978205 71083 Active 2015 Problem Code: S82.62XD ; Problem Code Type: ICD-10; Status: 'A'; Not Available [facility] 4 11:13:32 Problem Notes None recorded. Medical Equipment None Reported. Allergies Allergen ID Allergen Name Allergen Category Reaction Reaction Severity Criticality Documentation Date Start Date Code Code System Note Provider Name and Address Organization Details Recorded Time 68833 morphine sulfate medicatio n Not available Not available Not available 08/19/20232015 23139 RxNorm Not Available [facility] 4 12:57:50 Medications Name Sig Start Date Stop Date Status Note LastModified by Organization Details LastModified Time Synthroid 150 mcg tablet TAKE 1 TABLET 6 DAYS PER WEEK, SKIP ON 7TH DAY active Not Available Not Available N ot Available tamsulosin 0.4 mg capsule TAKE 1 CAPSULE BY MOUTH EVERYDAY AT BEDTIME active Not Available Not Available No t Available nitrofuranto in macrocrystal 100 mg capsule TAKE 1 CAPSULE BY MOUTH 3 TIMES A DAY active Not Available Not Available Not Available omeprazole 20 mg capsule,yo yed release TAKE 1 CAPSULE BY MOUTH EVERY DAY active Not Available Not Available No t Available estradiol 2 mg tablet TAKE 1 TABLET BY MOUTH EVERY DAY active Not Available Not Available No t Available zolpidem 10 mg tablet TAKE 1 TABLET BY MOUTH EVERY DAY AT BEDTIME NEEDED active Not Available Not Available No t Available oxycodone 5 mg tablet Take 1 tablet every 4 hours by oral route as needed. active Not Available Not Available N ot Available Athlete's Foot (terbinafine ) 1 % topical cream PLEASE SEE ATTACHED FOR DETAILED DIRECTIONS active Not Available Not Available N ot Available oxycodone HCl-oxycodon e-ASA RX GIVEN AT [facility], AT THE TIME OF SURGERY 2018 active Statu s: 'Curr ent'; Not Available Not Available Not Available sodium,potas sium,mag sulfates 17.5 gram-3.13 gram-1.6 gram oral soln DRINK 177ML ORALLY TWICE 2 DAYS active Not Available Not Available No t Available Vitals Date Recorded Body height Body mass index (BMI) Body weight Provider Name and Address Organization Details Last Updated DateTime 08/12/2024 167.64 cm 28.7 kg/m2 17775.44 g HAYDEN ESCOBAR [facility] 08/12/2024 11:13:02 Date Recorded Body height Body mass index (BMI) Body weight Provider Name and Address Organization Details Last Updated DateTime 01/14/2024 167.64 cm 28.7 kg/m2 82655.44 g HAYDEN ESCOBAR [facility] 01/14/2024 14:09:58 Social History None recorded. Functional Status None recorded. Mental Status None recorded. Family History Nothing Reported. Medical History No medical history recorded. Gynecological HistoryNo gynecological history recorded. Obstetrics History GPAL:G 0 P 0 0 0 0 Past Encounters Encounter ID Performer Location Encounter Start Date Encounter Closed Date Diagnosis/Indication Diagnosis SNOMED-CT Code Diagnosis ICD10 Code Diagnosis Note [id number] [facility] [address] [place] [address] 01/14/2024 13:44:35 02/07/2024 10:07:40 Pain in finger of left hand 1815754399 94855 M79.645 Mass of sk in of finger of left hand 8543468873 0557988 R22.32 [id number] Corazon Dong, OTR/L,CHT [address] [place] [address] 06/15/2024 09:30:08 06/15/2024 10:22:29 Lump on finger 977421004 R22.32 This visit was completed today under the supervisio n of Dr. Cagle Upon welcoming the patient from the waiting room into the clinic, I am able to observe how the involved extremity is used functional ly. The patient demonstrat es use of the surgical hand for such activities as gathering personal items, and pushing up from the chair. The patient shared their personal experience over the last 2 weeks living with a postoperat nils hand and modifying activities around the house. The dressing is removed. The surgical wound is inspected and found to be clean and dry. The edges of the incision are approximat ed with intact sutures. Patient has intact neurovascu lar structures with only slight tenderness at the incision. No surroundin g erythema, wound drainage, warmth or signs of infection. The patient states no pain when palpating around the surgical site and the surroundin g structures . The involved digit is able to demonstrat e a nearly full composite fist. Digits are able to demonstrat e full extension to open hand flat on the table. The patient is able to demonstrat e both tip, tripod, and lateral pinch. The distal sensation for light touch is assessed. The patient is able to demonstrat e a positive response to light touch but states distal and ulnar digit numbness Postoperative visit [id number] 68734 Z48.89 Sutures are removed today without complicati on. Path report is reviewed. Scar massage was demonstrat ed including a variety of movements to disperse the fibrotic tissue which, if untouched, would create a thickened area of scar. This is instructed with a handout given to the patient. Further discussion with regards to lymphatic flow and the tracking of fluids down the fingers, across the palm and through the wrists to the lymph node was provided with a demonstrat ion for manual edema mobilizati on techniques . Additional home exercises including tendon gliding were demonstrat ed in the office today with a handout also provided. Further discussion about the MELT technique using a small ball for palmar massage with informlola valdez was provided. Per the surgeon , since there are no wound care complicati ons or concerns, no follow up appointmen t needed. The patient has been educated with a significan t Home Exercise Program to be completed over the next 2 weeks. The patient was instructed to contact the office if there should arise any concerns with the surgical site or if there is not sufficient functional recovery. All questions, with regards to return to functional activities , are answered prior to leaving the office today. This office visit was complete at 20minutes. [id number] Corazon Dong, OTR/L,CHT [facility] [address] [place] [address] 06/22/2024 11:31:53 06/22/2024 12:29:09 Mass of soft tissue 654011223 M79.89 The surgical wound is inspected and found to be clean and dry. The edges of the incision are mostly approximat ed with an area at the central incision about 1.5 cm that has not completely closed but shows great evidence of healing. patient has intact neurovascu lar structures with only slight tenderness at the incision. No surroundin g erythema, wound drainage, warmth or signs of infection. The patient states no pain when palpating around the surgical site and the surroundin g structures . The involved digit is able to demonstrat e a nearly full composite fist. Digits are able to demonstrat e full extension to open hand flat on the table. The patient is able to demonstrat e both tip, tripod, and lateral pinch. The distal sensation for light touch is assessed. The patient is able to demonstrat e a positive response to light touch. With regards to the surgical scar, there is a slight thickness and raised area at the central portion. Scar massage is demonstrat ed here with moderate pressure showing the patient that she needs to mobilize the scar tissue and the surroundin g thickness that could turn into fibrosis. This will soften the skin and promote the healing. The patient has not been advised on the home program and agrees to continue to work on this. The patient is satisfied that there are no signs of infection at this point she just needs to continue with her home program. She may call in the future if there are additional concerns. [id number] MD [facility] [address] [place] [address] 08/12/2024 11:08:13 08/27/2024 18:03:25 Mass of hand 252502679 R22.32 Health Concerns Section Related Observation LastModified by Organization Detai ls LastModified Time None Recorded Concern Status LastModified by Organization Details LastModified Time None Recorded Advance Directives Directive None Recorded Payers Insurance Date Sequence Insurance Name Policy Number Policy Leslie Covered Member ID Leslie Member ID Guarantor Name 08/09/2024 1 [place] [employer] Siobhan Seay [id number] Siobhan Seay 08/27/2024 2 [place] [id number] Siobhan Seay [id number] Siobhan Seay 08/06/2024 2 [id number] Siobhan Seay 06/09/2024 1 [facility] TYPE I (HMO) [id number] Siobhan Seay [id number] Siobhan Seay Notes Date Note Type Note Provider Name and Address Organization Details Recorded Time 01/14/2024 text/html Diagnosis: Mass left index -agrn-gxc female who presents complaining of numbness over the radial aspect of her left index finger. She notes a nodule in the finger and is numb distal to the nodule. She describes no history of trauma or other inciting event. She does not have numbness in the other distribution.Past family, medical, social history and review of systems has been reviewed, updated and is located in the patient s chart.Examination: Healthy appearing patient in no apparent distress. Alert and oriented.HEENT: Normocephalic and atraumatic.Heart: Regular rate and rhythm.Lungs: Clear to auscultation bilaterally.Abdomen: Soft and nontender.Neurovascu lar exam: Decreased sensation along the radial aspect of her left index finger from the nodule distalExtremities: Symmetric range of motion bilateral wrists and digits. Mobile nodule along the radial aspect of the left index finger. No atrophy in either upper extremity. Brisk capillary refill in all digitsX-rays ordered, obtained, and reviewed today at [facility]: PA and lateral of the left index finger reveals no evidence of fracture, dislocation or foreign body.Plan: The patient and I discussed her situation at length. She would like the mass removed. I explained that removing the mass is not a guarantee that her sensation will return. Risks including infection, injury to blood vessels tendons and the digital nerve itself as well as stiffness of the finger and recurrence the mass were discussed. All her questions are answered. She would like to proceed with excision of the mass. Jeff Cagle MD [address], [place], [address], [facility] 01/15/2024 16:26:26 06/15/2024 text/html This is a very robinson 64-year-old woman who met with Dr. Cagle with regards to numbness of the left index finger. She was found to have a mass in the middle phalanx and subsequently had this excised on 06/02/2024. She presents to the office today for a postoperative wound check and suture removal visit. We will also assess her range of motion and function. And advised on a home program. Corazon Dong OTR/Deepa,T [address], [place], [address], [facility] 06/15/2024 10:22:21 06/22/2024 text/html This is a 64-year-old woman who had the left index finger excision of a mass on the ulnar volar side of the digit On 06/02/2024 . She had initially been seen on 06/15/2024 for a suture removal but called today with concerns for the wound healing and returned to the office today per her request. DESIREE Ly/Deepa,CHT [address], [place], [address], [facility] 06/22/2024 12:23:50 08/12/2024 text/html Diagnosis: Statu s post excision mass left index finger The patient returns at our request. She reports that she continues to have numbness along the ulnar aspect of her index finger. She also notes some thickened scar in the finger. Past family, medical, social history and review of systems has been reviewed, updated and is located in the patient s chart. Examination: Healthy appearing patient in no apparent distress. Alert and oriented. She has well-preserved motion of the digit. There is some thickened scar in the surgical area. She has not seen improvement in her sensation. No atrophy in either upper extremity. Brisk capillary refill in all digits I reviewed the pathology report for her mass. 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 Plan: The patient and I discussed her situation at length. I explained that it may be months to a year from surgery before we know if she will regain any sensation in that distribution if she does not we could consider surgical reconstruction of the nerve although as she has an intact radial digital nerve she would likely do fine without reconstruction. All her questions were answered. She will follow-up at her discretion. Jeff Cagle MD [address] [place], [place] [address] [address], [place], [address], [facility] 08/15/2024 14:18:34 OBGyn Episode No OBEpisode recorded.
--- OUTSIDE RECORDS SUMMARY | 2024-12-17 11:41 | XMS_ITS | Patient Health Record ---
Author Organization [facility] Address [address] [place] [address] Care Team Providers Care Photographic Plate Maker Name Role Phone Mateo Almaguer MD Primary Care Provider Dayo Francis Unavailable [phone] Allergies Allergen (clinical drug ingredient) Drug/Non Drug Allergy documented on EMR Reaction Allergy Type Onset Date Status morphine Morphine Sulfate Unknown Drug Allergy Active Reason For Referral No Information Medications Medication SIG (Take, Route, Fr equency, Duration) Notes Start Date End Date Status Synthroid 150 MCG 1 tablet on an empty stomach in the morning Orally Once a day Active clonazePAM 1 MG 1 tablet Orally Once a day/prn Active Benadryl Allergy 25 MG 1 tablet as neede d Orally every 8 hrs/prn Active Estradiol 2 MG 1 tablet Orally Once a day Active Social History Tobacco Use: Social History Observation Description Date Details (start date - stop date) Never Smoker NA - NA Tobacco Use/Smoking Question Answer Notes Patient is a nonsmoker Alcohol Screen Question Answer Notes Did you have a drink contain ing alcohol in the past year? Yes How often did you have a dri nk containing alcohol in the past year? 2 to 3 times a week (3 points) How many drinks did you have on a typical day when you were drinking in the past year? 1 or 2 drinks (0 point) How often did you have 6 or more drinks on one occasion in the past year? Never (0 point) Points 3 Interpretation Positive Section Notes: Nonsmoker; no sig alcohol Problems Problem Type SNOMED Code ICD Code Onset Dates Problem Status W/U Status Risk Notes Problem 865543946 Encounter for screening for malignant neoplasm of colon (Z12.11) Active confirmed Problem 372734922 Preprocedural examination (Z01.818) Active confirmed Problem 89487643 Constipation, unspecified constipation type (K59.00) Active confirmed Plan Of Treatment Future Test Test Name Order Date COLONOSCOPY 08/21/2017 Insurance Providers Payer Name Payer Address Payer Phone Subscriber Number Group Number Insured Name Patient Relationship to Insured Coverage Start Date Coverage End Date [employer] [address] [place] [address] [id number] ESTEPHANIA RILEY Self - patient is the insured Medical (General) History Medical History History ICD Code Denies [place],DM,CVA,Lung disease,renal dise ase Hypothyroidism Describes a negative colonoscopy in 2010 in [place] Takes Clonazepam for sleeping Surgical History Surgery Date(Month/Year) Knee surgery Left inguinal hernia repair Ankle surgery Cleft palate
== END ==
LOC: HO.SL 10:51
PROVIDERS: PCP Internal Medicine; Visit Provider Internal Medicine
DX: G47.10 Hypersomnia, unspecified (principal); R35.1 Nocturia; R63.1 Polydipsia; R06.83 Snoring; R40.0 Somnolence
CPT/HCPCS: 95806

== ENCOUNTER → 2024-12-17 11:01 | Outpatient (BNV) | payer MEDICARE, SELFPAY | PROVIDERS: PCP Internal Medicine; Visit Provider Internal Medicine | DX: R06.83 Snoring (principal) | CPT/HCPCS: 95806 ==

== ENCOUNTER 2025-02-12 13:50 | Outpatient (REF) | payer MEDICARE, SELFPAY ==
[2025-02-12 17:30] LABS: MANUAL DIFF FLAG NO
[2025-02-12 17:36] LABS: Hematocrit 37.7 % (37.0-47.0); Hemoglobin 12.5 g/dl (12.0-16.0); Imm Gran Abs Auto 0.01 X10*3/uL (0.00-0.03); Imm Gran Pct Auto 0.1 % (0.0-0.4); Lymphocytes Absolute Auto 2.4 X10*3/uL (1.2-4.9); Mean Corpuscular HGB Conc 33.2 g/dl (31.0-35.0); Mean Corpuscular Hemoglobin 31.0 pg (27.0-33.0); Mean Corpuscular Volume 93.5 fL (80.0-98.0); NRBC Abs Auto 0.000 X10*3/uL (0.0-0.012); NRBC Pct Auto 0.0 /100WBC (0.0-0.2); Platelet Count 215 X10*3/uL (160-400); Red Blood Count 4.03 X10*6/uL (4.20-5.50); White Blood Count 7.1 X10*3/uL (4.8-10.8)
[2025-02-12 18:27] LABS: Appearance Urine Clear; Glucose Urine UA Negative (Negative); PH 6.0 (5.0-9.0); Specific Gravity - Urine <= 1.005 (1.005-1.025); UMIC TRIGGER UA YES
[2025-02-12 18:44] LABS: Alanine Aminotransferase 14 U/L (0-31); Albumin Level 4.3 g/dL (3.5-5.0); Alkaline Phosphatase 38 U/L (39-117); Anion Gap 13 (12-20); Aspartate Amino Transferase 21 U/L (5-31); Blood Urea Nitrogen 15 mg/dL (9-16); Calcium 9.3 mg/dL (8.4-10.2); Carbon Dioxide 27 mmol/L (22-29); Chloride 103 mmol/L (96-108); Estimated Glomerular Filt Rate 54; Iron 97 mcg/dL (30-160); Magnesium 2.4 mg/dL (1.6-2.6); Percent Iron Saturation 35 % (15-50); Potassium 4.8 mmol/L (3.3-5.1); Sodium 138 mmol/L (135-145); Total Iron Binding Capacity 280 mcg/dL (228-428); Total Protein 7.8 g/dL (6.5-8.0); Unsaturated Iron Binding 183 ug/dL
[2025-02-16 21:49] LABS: Lyme Abs Screen <0.90 index
== END 2025-02-12 13:51 | disposition home or self-care (01) ==
LOC: HO.WFDLDS 13:50
PROVIDERS: PCP Internal Medicine; Visit Provider Internal Medicine
DX: Z13.220 Encounter for screening for lipoid disorders (principal); R35.1 Nocturia; K59.00 Constipation, unspecified; E07.9 Disorder of thyroid, unspecified; R35.89 Other polyuria; R63.1 Polydipsia; M19.90 Unspecified osteoarthritis, unspecified site
CPT/HCPCS: 36415; 80053; 81001; 82550; 83540; 83735; 84443; 85025; 86617; 86618; 87086; 87088; 87186; 96127; 99212

== ENCOUNTER 2025-02-12 13:50 | Outpatient (AMB) | payer MEDICARE, SELFPAY ==
--- OUTSIDE RECORDS SUMMARY | 2025-02-12 13:54 | XMS_ITS | Encounter Summary ---
Author Organization [facility] Address [address] [place] [address] Phone Care Team Providers Care Executive Talent Acquisition Consultant Name Role Phone Mateo Almaguer MD Primary Care Provider Encounter Details Date Type Department Care Team (Late st Contact Info) Description 10/14/2022 Procedure Pass [facility], Ct Scan - [address] [address] Social History Tobacco Use Types Packs/Day Years Used Date Smoking Tobacco: Never Smokeless Tobacco: Never Alcohol Use Standard Drinks/Week Comments Not Currently 0 (1 standard drink = 0.6 oz pur e alcohol) Education Answer Date Recorded Are you interested in more education? Not on yandel e 10/12/2022 Are you concerned about learning? Not on file 10/12/2022 No 10/12/2022 No 10/12/2022 Comments Unknown Sex and Gender Information Value Date Recorded Sex Assigned at Female 10/14/2022 5:05 PM EDT Legal Sex Female 11:01 AM EDT Gender Identity Female 10/14/2022 5:05 PM EDT Sexual Orientation Not on file documented as of this encounter Functional Status * Calculated C-SSRS Risk Score (Lifetime/Recent) Answer Date of Assessment Author No Risk Indicated 10/14/2022 5:03 PM EDT Ivelisse Boateng RN * [place] Suicide Severity Rating Scale (Screener/Recent Self-Report) Question Answer Date of Assessment Author 1. Wish to be (Past 1 Month) No 023 5:03 PM EDT Ivelisse Boateng RN 2. Non-Specific Active Suici kat Thoughts (Past 1 Month) No 10/14/2022 5:03 PM EDT Ivelisse Boateng RN 6. Suicidal Behavior (Lifetime) No 5:03 PM EDT Ivelisse Boateng RN documented as of this encounter Plan of Treatment Not on file documented as of this encounter Visit Diagnoses Not on filedocumented in this encounter Care Teams Executive Talent Acquisition Consultant Relationship Specialty Start Date End Date Mateo Almaguer MD [address] [place] [address] [place] [address] PCP - General Internal Medicine 01/30/19 documented as of this encounter Additional Source Comments The information contained in this document represents components of the legal health record. It is not the complete legal health record.[facility]
--- OUTSIDE RECORDS SUMMARY | 2025-02-12 13:54 | XMS_ITS | Patient Health Record ---
Author Organization [facility] Address [address] [place] [address] Care Team Providers Care Road Cleaner Name Role Phone Rosina (RETIRED) Mateo QUINN Primary Care Provide Dayo Negron [phone] Allergies Allergen (clinical drug ingredient) Drug/Non Drug [...] Problem Status W/U Status Risk Notes Problem 622723472 Encounter for screening for malignant neoplasm of colon (Z12.11) Active confirmed Problem 062130890 Preprocedural examination (Z01.818) Active confirmed Problem 16303080 Constipation, unspecified constipation type (K59.00) Active confirmed Plan Of Treatment Future Test Test Name Order Date COLONOSCOPY 08/21/2017 Insurance Providers Payer Name Payer Address Payer Phone Subscriber Number Group Number Insured Name Patient Relationship to Insured Coverage Start Date Coverage End Date [employer] [address] [address] [place] [address] [id number] ESTEPHANIA RILEY Self - patient is the insured Medical (General) History Medical History History ICD Code Denies [place],DM,CVA,Lung disease,renal dise ase Hypothyroidism Describes a negative colonoscopy in 2010 in [place] Takes Clonazepam for sleeping Surgical History Surgery Date(Month/Year) Knee surgery Left inguinal hernia repair Ankle surgery Cleft palate
--- OUTSIDE RECORDS SUMMARY | 2025-02-12 13:55 | XMS_ITS | Encounter Summary ---
Author Organization [facility] Address [address] [place] [address] Phone Care Team Providers Care Ruby On Rails Consultant Name Role Phone Mateo Almaguer MD Primary Care Provider Encounter Details Date Type Department Care Team (Late st Contact Info) Description 05/07/2023 Procedure Pass [facility] Endoscopy Admitting Dept Virtual Department [address] [place] [address] Social History Tobacco Use Types Packs/Day Years Used Date Smoking Tobacco: Never Smokeless Tobacco: Never Alcohol Use Standard Drinks/Week Comments Not Currently 3 (1 standard drink = 0.6 oz pur e alcohol) Education Answer Date Recorded Are you interested in more education? Not on yandel e 10/12/2022 Are you concerned about learning? Not on file 10/12/2022 No 10/12/2022 No 10/12/2022 Digital Access Answer Date Recorded No 11/13/2022 No 11/13/2022 Reliable internet access at home? Not on file 11/13/2022 Device with a working camera? Not on file Intimate Partner Violence Answer Date R ecorded Are you denied basic needs s uch as food, clothing, or medical care? No 05/07/2023 In the past 12 months have y ou been in a relationship with a person who hurts, threatens, or tries to control you? No 05/07/2023 Are you denied basic needs s uch as food, clothing, or medical care? No 05/07/2023 In the past 12 months have y ou been in a relationship with a person who hurts, threatens, or tries to control you? No 05/07/2023 Comments No Sex and Gender Information Value Date Recorded Sex Assigned at Female 10/14/2022 5:05 PM EDT Legal Sex Female 11:01 AM EDT Gender Identity Female 10/14/2022 5:05 PM EDT Sexual Orientation Not on file documented as of this encounter Plan of Treatment Not on file documented as of this encounter Visit Diagnoses Not on filedocumented in this encounter Care Teams Ruby On Rails Consultant Relationship Specialty Start Date End Date Mateo Almaguer MD [address] [place] [address] [place] [address] PCP - General Internal Medicine 01/30/19 documented as of this encounter Additional Source Comments The information contained in this document represents components of the legal health record. It is not the complete legal health record.[facility]
--- OUTSIDE RECORDS SUMMARY | 2025-02-12 13:55 | XMS_ITS | Patient Health Record ---
[facility] Address [address] [place] [address] Care Team Providers Care Customer Development Manager Name Role Phone Demarco Parmar MD Primary Care Provider Martha Renae Unavailable [phone] Allergies Allergen (clinical drug ingredient) Drug/Non Drug Allergy documented on EMR Reaction Allergy Type Onset Date Status morphine Morphine anaphylaxis Drug Allergy Activ e Reason For Referral No Information Medications Medication SIG (Take, Route, Fr equency, Duration) Notes Start Date End Date Status Ketoconazole 2 % 1 application Apply a thin layer to externally to feet, even between toes Twice a day; Duration: 30 days Active Estradiol 2 MG 1 tablet Orally Once a day Active Synthroid 150 MCG 1 tablet in the morn ing on an empty stomach Orally Once a day Active Immunizations Vaccine Route Administration Date Status Comme nts Influenza Unknown 01/01/2025 Refused Social History Tobacco Use: Social History Observation Description Date Details (start date - stop date) Never Smoker NA - NA Tobacco use other than smoking: Question Answer Notes Are you an other tobacco user? No Tobacco Control (Standard) Question Answer Notes Tobacco use: Nonsmoker Additional Findings: Tobacco non-user Current no nsmoker AUDIT-C (Standard) Question Answer Notes Did you have a drink contain ing alcohol in the past year? Yes How often did you have a dri nk containing alcohol in the past year? Declined to specify (0 point) How many drinks did you have on a typical day when you were drinking in the past year? Declined to specify (0 point) How often did you have six o r more drinks on one occasion in the past year? Declined to specify (0 point) Points 0 Interpretation Negative Problems Problem Type SNOMED Code ICD Code Onset Dates Problem Status W/U Status Risk Notes Problem Plantar wart ([id number]) Plantar wart (B07.0) Active confirmed Vital Signs Blood pressure diastolic 80 mm Hg 01/01/2025 Height 5ft6in in 01/01/2025 Blood pressure systolic 123 mm Hg 01/01/2025 Weight 155 lbs 01/01/2025 BMI 25.01 kg/m2 01/01/2025 Encounters Encounter Location Date Provider Diagnosis [facility] [place] [address] [place] [address] 01/01/2025 Martha Lu Plantar wart B07.0 ; Tailor's bunion of left foot M21.622 ; Tinea pedis of both feet B35.3 ; Left foot pain M79.672 ; Pain in left ankle and joints of left foot M25.572 ; Bursitis of left foot M77.52 and Tinea unguium B35.1 Assessments Encounter Date Diagnosis (ICD Code) Assessment Notes Treatment Notes Treatment Clinical Notes Section Notes 01/01/2025 Plantar wart (ICD-10 - B07.0) 01/01/2025 Tailor's bunion of left foot (ICD-10 - M21.622) 01/01/2025 Tinea pedis of both feet (ICD-10 - B35.3) Patient Educated with: ATHELETE .pdf (ATHELETE .pdf) 01/01/2025 Left foot pain (ICD-10 - M79.672) 01/01/2025 Pain in left ankle and joints of left foot (ICD-10 - M25.572) 01/01/2025 Bursitis of left foot (ICD-10 - M77.52) 01/01/2025 Tinea unguium (ICD-10 - B35.1) Plan Of Treatment No Information Insurance Providers Payer Name Payer Address Payer Phone Subscriber Number Group Number Insured Name Patient Relationship to Insured Coverage Start Date Coverage End Date Medicare [facility] [address] [place] [address] [id number] Siobhan Seay Self - patient is the insured [facility] [address] [place] [address] [id number] Siobhan Seay Self - patient is the insured Medical (General) History Medical History History ICD Code Arthritis Back,Hip,and Knee pain Broken bones covid-19 Neuropathy thyroid Bone implants/screws Surgical History Surgery Date(Month/Year) right hip replacement 2022 finger surgery- left index 2023 left knee replacement 1976 right knee replacement 1978 left ankle surgery 2015 B/L Hand Surgery dupuytrens contracture
--- OUTSIDE RECORDS SUMMARY | 2025-02-12 13:55 | XMS_ITS | Clinical Summary ---
Author Organization [facility] Address [address] [place] [address] Phone Care Team Providers Care Working Foreman Name Role Phone Mateo Fuentes MD Primary Care Provider Allergies Active Allergy Reactions Criticality Noted Date Comments Morphine 10/14/2022 Medications SYNTHROID 150 mcg tablet TAKE 1 TABLET 6 DAYS PER WEEK, SKIP ON DAY 2 02/28/20 19 Active omeprazole (PRILOSEC) 20 MG capsule Take by mouth. 1 01/07/20 19 Active zolpidem (AMBIEN) 10 mg tablet TAKE 1 TABLET BY MOUTH EVERY DAY AT BEDTIME NEEDED 1 02/28/20 19 Active diclofenac sodium (VOLTAREN) 50 MG EC tabletIndications: Primary localized osteoarthritis of hip Take 1 tablet (50 mg total) by mouth 2 (two) times a day. 60 tablet 1 01/15/20 20 Active Additional Information Patient not taking.Reported on 10/14/2022 estradioL (ESTRACE) 2 MG tablet Take 1 tablet by mouth every morning. 04/26/20 23 Active ATHLETE'S FOOT, TERBINAFINE, 1 % cream PLEASE SEE ATTACHED FOR DETAILED DIRECTIONS 02/20/20 Active herbal drugs (COLON HERBAL CLEANSER ORAL) Take by mouth daily as needed. Active Social History Tobacco Use Types Packs/Day Years Used Date Smoking Tobacco: Never Smokeless Tobacco: Never Tobacco Cessation:Counseling Given: Not Answered Alcohol Use Standard Drinks/Week Comments Not Currently [...] PM EDT Sexual Orientation Not on file Last Filed Vital Signs Vital Sign Reading Time Taken Comments Blood Pressure 140/76 05/07/2023 9:00 AM EST Pulse 75 05/07/2023 9:00 AM EST Temperature 36.6 C (97.9 F) 05/07/2023 7:50 AM EST Respiratory Rate 13 05/07/2023 9:00 AM EST Oxygen Saturation 100% 05/07/2023 9:00 AM EST Inhaled Oxygen Concentration - - Weight 83.5 kg (184 lb) 05/06/2023 8:30 AM EST Height 167.6 cm (5' 6 ) 05/06/2023 8:30 AM EST Body Mass Index 29.7 05/06/2023 8:30 AM EST Plan of Treatment Health Maintenance Due Date Last Done Comments Adult Td,Tdap Booster 1960 LIPID PANEL 1959 TSH LEVEL 1959 DEPRESSION SCREENING 1971 HEPATITIS C SCREENING 1977 HIV ONE-TIME SCREENING (18-6 5 YEARS) 1977 MAMMOGRAM 1999 COLOGUARD 2004 FIT TEST 2004 FOBT 2004 SIGMOIDOSCOPY 2004 VIRTUAL COLONOSCOPY 2004 PNEUMOCOCCAL VACCINES (50+ y ears) (1 of 1 - PCV) 2009 ZOSTER VACCINES (1 of 2) 2009 COVID-19 VACCINE (1 - 2023-2 5 season) 2024 OSTEOPOROSIS SCREENING INITI AL (ONE-TIME) 2024 SCREENING FOR DIABETES 10/14/2025 10/14/2022 COLONOSCOPY 05/07/2033 05/07/2023 COLORECTAL CANCER SCREENING 05/07/2033 RSV VACCINE (1 - 1-dose 75+ series) 2034 SMOKING STATUS SCREENING (On ce After 26 Yrs) Completed 05/07/2023 HEPATITIS A VACCINES Aged Out No long er eligible based on patient's age to complete this topic HIB VACCINES Aged Out No longer eligi ble based on patient's age to complete this topic MENINGOCOCCAL VACCINES (ACWY) Aged Out No longer eligible based on patient's age to complete this topic MENINGOCOCCAL VACCINES (B) Aged Out N o longer eligible based on patient's age to complete this topic Medical Devices Implanted Type Area Manager Balance Device Identifier Shelf Expiration Date Model / Serial / Lot Screw Left Knee Procedures Procedure Name Priority Date/Time Associated Diagnosis Comments ENDOSCOPY, COLON 05/07/2023 7:38 AM EST from Last 3 Months or Most Recently Relevant to Health Maintenance Results * ENDOSCOPY, COLON (05/07/2023 7:38 AM EST) Narrative Transcriptions Leroy Church MD, MPH - 05/07/2023 7:38 AM EST [facility] Patient Name: Siobhan Seay Attending MD:: LEROY CHURCH MD, Procedure Date: 05/07/2023 7:38 AM Date of : 1960 Age: 62 Admit Type: Outpatient Gender: Female Room: [place] [address] Referring MD: AIDEN FUENTES Exam Type: Colonoscopy Indications: High risk colon cancer surveillance: Personalhistory of colonic polyps Medications: Monitored Anesthesia Care Procedure: Informed consent was obtained from the patientafter discussion of the indications, limitations, alternatives, benefits, and risks of the procedure. Risks specifically discussed include but are not limited to medication reactions, missed lesions, bleeding, perforation, or the need for emergent surgery. Throughout the procedure, the patient's blood pressure, pulse, end-tidal CO2, and oxygensaturations were monitored continuously. The Olympus adult variable colonoscope [id number] #3 was introduced through the anus and advanced to the cecum, identified by appendiceal orifice andileocecal valve. The colonoscopy was performed without difficulty. The patient tolerated the procedurewell. The quality of the bowel preparation was evaluated using the BBPS ([place] Bowel Preparation Scale)with scores of: Right Colon = 3, Transverse Colon = 3and Left Colon = 3 (entire mucosa seen well with no residual staining, small fragments of stool oropaque liquid). The total BBPS score equals 9. Theileocecal valve, appendiceal orifice, and rectum were photographed. Complications: No immediate complications. Findings: The perianal and digital rectal examinations were normal. Five sessile polyps were found in the ascendingcolon. The polyps were 2 to 3 mm in size. These polypswere removed with a jumbo cold forceps. Resection and retrieval were complete. A 6 mm polyp was found in the ascending colon. The polyp was sessile. The polyp was removed with acold snare. Resection and retrieval were complete. A 2 mm polyp was found in the rectum. The polyp was sessile. The polyp was removed with a jumbo cold forceps. Resection and retrieval were complete. Internal hemorrhoids were found duringretroflexion. The hemorrhoids were small. Impression: - Five 2 to 3 mm polyps in the ascending colon, removed with a jumbo cold forceps. Resected and retrieved. - One 6 mm polyp in the ascending colon, removedwith a cold snare. Resected and retrieved. - One 2 mm polyp in the rectum, removed with ajumbo cold forceps. Resected and retrieved. - Internal hemorrhoids. Recommendation: - Repeat colonoscopy for surveillance based on pathology results. Likely 3-[address] Leroy Church LEROY CHURCH MD 05/07/2023 8:45:00 AM This report has been signed electronically. Number of Addenda: 0 Note Initiated On: 05/07/2023 7:38 AM Procedure Code(s): --- Professional --- 64476, Colonoscopy, flexible; with removal of tumor(s), polyp(s), or other lesion(s) by snare technique [id number], 59, Colonoscopy, flexible; with biopsy, single or multiple --- Technical --- 16215, Colonoscopy, flexible; with removal of tumor(s), polyp(s), or other lesion(s) by snare technique [id number], 59, Colonoscopy, flexible; with biopsy, single or multiple Diagnosis Code(s): --- Professional --- Z86.010, Personal history of colonic polyps D12.2, Benign neoplasm of ascending colon D12.8, Benign neoplasm of rectum K64.8, Other hemorrhoids --- Technical --- Z86.010, Personal history of colonic polyps D12.2, Benign neoplasm of ascending colon D12.8, Benign neoplasm of rectum K64.8, Other hemorrhoids CPT copyright 2021 [employer]. All rights reserved. The codes documented in this report are preliminary and upon egg crater reviewmay be revised to meet current compliance requirements. Procedure Date: 05/07/2023 7:38:[address] [place] [id number] Mateo Fuentes MD GI PROCEDURE ORDERABLES Edited Result - Final from Last 3 Months or Most Recently Relevant to Health Maintenance Insurance BLUE CROSS OUT OF STATE PPO BLUE CROSS OUT OF STATE PPO BLUE CROSS OUT OF STATE PPO BLUE CROSS OUT OF STATE PPO BLUE CROSS OUT OF STATE PPO BLUE CROSS OUT OF STATE PPO Advance Directives For more information, please contact: [phone] (9AM - 5PM [facility], Saturday-Saturday) Documents on File Type Date Recorded Patient Rope Tier Expl anation Healthcare Proxy 05/08/2023 2:43 PM Care Teams Working Foreman Relationship Specialty Start Date End Date Mateo Fuentes MD [address] [place] [address] [place] [address] PCP - General Internal Medicine 01/30/19 Additional Source Comments The information contained in this document represents components of the legal health record. It is not the complete legal health record.[facility]
--- NOTE | 2025-02-12 14:04 | A.OFFPC_ITS ---
Vital Signs 02/12/25 14:08 BP 108/64 Blood Pressure Location Lt brachial Position Sitting Respiration 14 Pulse 68 Pulse Oximetry (%) 98 Oxygen Delivery Method Room Air Intake Visit Reasons: Urinary Issues Intake Note: New patient visit. frequency, incontinence. Technology Teacher Required: No Allergies morphine Allergy (Unknown, Verified 02/12/25 14:04) Unknown No Known Allergies (No Known Allergies*) Allergy (Verified 02/12/25 14:04) Tobacco use date assessed: 11/20/24 Fall risk assessment: No Falls in past year Last assessed Fall Risk: 02/12/25 Dental Screening Dental Screen Date: 11/20/24 HPI HPI Comments History of Present Illness Details The patient is a 64 year old female with a past medical history of hypothyroid, insomnia, OA hip s/p RTH replacement, GERD, IBS, colon polyps presenting for follow up Hypothyroid-on brand name synthroid. Intolerant of generic in the past. Last TSH wnl GI: on omeprazole. was referred to GI recently for chronic constipation Still suffering from nocturia, polydipsia. She has reassuring 24 hour urine. Sleep study was normal. She has mild CKD. Has more recently had urinary incontinence, some urgency. Denies dysuria. MSK: She reports muscle fatigue with stairs colonoscopy 2022-. declines mammogram ROS see HPI PHYSICAL EXAM: GENERAL: Alert and oriented x 3. NAD EYES: EOMI. Anicteric. HENT: Moist mucous membranes. No scleral icterus. No cervical lymphadenopathy. LUNGS: Clear to auscultation bilaterally. CARDIOVASCULAR: Regular rate and rhythm. No murmur. No JVD. ABDOMEN: Soft, non-tender +bs EXTREMITIES: No edema. Non-tender. SKIN: No rashes or lesions. Warm. NEUROLOGIC: No focal neurological deficits. CN II-XII grossly intact PSYCHIATRIC: Cooperative. Appropriate mood and affect [facility] Medical History Thrombosed external hemorrhoid Thyroid disease Arthritis Surgical History History of colonoscopy Family History Mother No problems noted. Father No problems noted. Social History Housing: House Patient Tobacco Use Status: Never used Tobacco e-Cigarette/Vaping Use: Never Used service: No Current occupational status: retired Cognitive needs: No Hearing needs: No Vision needs: Yes (rx glasses) Questionnaire PHQ-9 Over the last 2 weeks, how often have you been bothered by any of the following problems? 1. Little interest or pleasure in doing things: not at all 2. Feeling down, depressed, or hopeless: not at all 3. Trouble falling or staying asleep, or sleeping too much: more than half the days 4. Feeling tired or having little energy: several days 5. Poor appetite or overeating: not at all 6. Feeling bad about yourself - or that you are a failure or have let yourself or your family down: not at all 7. Trouble concentrating on things, such as reading the newspaper or watching television: not at all 8. Moving or speaking so slowly that other people could have noticed. Or the opp osite - being so fidgety or restless that you have been moving around a lot more than usual: not at all 9. Thoughts that you would be better off or of hurting yourself in some way: not at all Total score: 3 Depression Screening Interpretation: Negative Depression Screening Done: Yes 18858 - PHQ-9 Billing: Yes Source: Developed by Drs. Dayo Westbrook, Najma Verdugo, Darron Esposito and colleagues, with an educational toney from [employer]. Thrive Questionnaire Date Thrive assessed: 02/08/25 I am a: Patient What is your living situation today?: I have a steady place to live Within the past 12 months, did the food you bought not last and you didn't have the money to get more?: Never true Within the past 12 months, did you worry whether your food would run out before you got money to buy more?: Never true Do you have trouble paying for medicines?: No Do you have trouble getting transportation to medical appointments?: No Do you have trouble paying your heating and electricity bill?: No Do you have trouble taking care of your child, family member or friend?: No Do you have trouble with day-to-day activities such as bathing, preparing meals, shopping, managing finances, etc.?: No Are you currently unemployed and looking for a job?: No Are you interested in more education?: Yes Please select the resources that you would like help with: None Currently or been in a relationship where the following occur: No concerns reported THRIVE Score: 0 AUDIT C Alcohol Use Questionnaire (AUDIT-C) 1. How often do you have a drink containing alcohol?: 2-3 times a week 2. How many drinks containing alcohol do you have on a typical day when you are drinking?: 1 or 2 3. How often do you have six or more drinks on one occasion?: Less than monthly Total Score: 4 ASHLYN-7 AMB Questionnaire ASHLYN-7 Date ASHLYN - 7 assessed: 11/20/24 Feeling nervous, anxious, or on edge: 0 = Not at all Not being able to stop or control worryin = Several days Worrying too much about different things: 1 = Several days Trouble relaxin = Several days Being so restless that it is hard to sit still: 0 = Not at all Becoming easily annoyed or irritable: 0 = Not at all Feeling afraid as if something awful might happen: 1 = Several days Total ASHLYN-7 score (0-4 normal; 5-9 mild; 10-14 moderate; 15-21 severe): 4 Source: Developed by Drs. Dayo Westbrook, Najma Verdugo, Darron Esposito and colleagues, with an educational toney from [employer]. Physical exam (Primary Care) Vital Signs: Last Vital Signs Pulse 68 02/12/25 14:08 Resp 14 02/12/25 14:08 BP 108/64 02/12/25 14:08 Pulse Ox 98 02/12/25 14:08 Oxygen Delivery Method Room Air 02/12/25 14:08 Tobacco/Smoking Status: Tobacco use Status Tobacco use date assessed 11/20/24 02/12/25 14:06 Patient Tobacco Use Status Never used Tobacco 02/12/25 14:06 e-Cigarette/Vaping Use Never Used 02/12/25 14:06 PHQ-9: PHQ-9 Score PHQ-9: Total score 3 02/12/25 14:23 Depression Screening Interpretation: Negative Thrive Assessment: Date of Thrive Assessment Date Thrive assessed 02/08/25 02/12/25 14:06 Currently or been in a relationship where the following occur: No concerns reported Coding Level of Care Code Est Pt Level 4 (30767) Complex EM visit Add On G2211 Diagnoses Polyuria R35.89 Nocturia R35.1 Thyroid disease E07.9 Additional Codes PHQ-9 - 11787 - PHQ-9 Billing: Yes ([id number]) Assessment & Plan Assessment & Plan (1) Polyuria: Code(s): R35.89 - Other polyuria Category: Medical (2) Nocturia: Code(s): R35.1 - Nocturia Category: Medical (3) Thyroid disease: Code(s): E07.9 - Disorder of thyroid, unspecified Category: Medical Plan 64 year old female for follow up Polyuria, nocturia, some urinary incontinence-referred CKD-neprhology referral Muscle fatigue labs ordered Orders: Orders Urine Culture 02/12/25 R35.1 - Nocturia Comprehensive Met. Panel 02/12/25 E07.9 - Disorder of thyroid, unspecified, M19.90 - Unspecified osteoarthritis, unspecified site, R35.89 - Other polyuria, R63.1 - Polydipsia, Z13.220 - Encounter for screening for lipoid disorders Lyme IgG/IgM w/reflex to WB 02/12/25 E07.9 - Disorder of thyroid, unspecified, M19.90 - Unspecified osteoarthritis, unspecified site, R35.89 - Other polyuria, R63.1 - Polydipsia, Z13.220 - Encounter for screening for lipoid disorders IRON PROFILE 02/12/25 K59.00 - Constipation, unspecified UA and rflx microscopic 02/12/25 R35.1 - Nocturia Complete Blood Count Auto Diff 02/12/25 E07.9 - Disorder of thyroid, unspecified, M19.90 - Unspecified osteoarthritis, unspecified site, R35.89 - Other polyuria, R63.1 - Polydipsia, Z13.220 - Encounter for screening for lipoid disorders Magnesium 02/12/25 E07.9 - Disorder of thyroid, unspecified, M19.90 - Unspecified osteoarthritis, unspecified site, R35.89 - Other polyuria, R63.1 - Polydipsia, Z13.220 - Encounter for screening for lipoid disorders Creatine Kinase Total 02/12/25 E07.9 - Disorder of thyroid, unspecified, M19.90 - Unspecified osteoarthritis, unspecified site, R35.89 - Other polyuria, R63.1 - Polydipsia, Z13.220 - Encounter for screening for lipoid disorders TSH reflex Free T4 02/12/25 E07.9 - Disorder of thyroid, unspecified, M19.90 - Unspecified osteoarthritis, unspecified site, R35.89 - Other polyuria, R63.1 - Polydipsia, Z13.220 - Encounter for screening for lipoid disorders Referrals Urogynecology Referral R32 - Unspecified urinary incontinence, R35.89 - Other polyuria Nephrology Referral N18.9 - Chronic kidney disease, unspecified
[2025-02-12 14:08] VITALS: BP 108/64; PULSE 68; RESP 14; O2SAT 98
== END 2025-02-12 14:40 | disposition home or self-care (01) ==
LOC: HO.HMCFM 13:51
PROVIDERS: PCP Internal Medicine; Visit Provider Internal Medicine
DX: R35.89 Other polyuria (principal); R35.1 Nocturia; E07.9 Disorder of thyroid, unspecified

== ENCOUNTER 2025-03-09 15:04 | Outpatient (AMB) | payer MEDICARE, SELFPAY ==
[2025-03-09 15:09] VITALS: BP 102/62; BMI 26.1
--- NOTE | 2025-03-09 15:09 | HO.NEPHOV_ITS ---
Vital Signs 03/09/25 15:09 Height 5 ft 5 in Weight 157 lb BMI 26.1 BP 102/62 Blood Pressure Location Lt brachial Position Sitting Intake Visit Reasons: INP: Chronic kidney disease-Conf Electronic Assembler Group Leader Required: No Accompanied by: Spouse Allergies morphine Allergy (Unknown, Verified 03/09/25 15:13) Unknown No Known Allergies (No Known Allergies*) Allergy (Verified 03/09/25 15:13) [facility] Medical History Thrombosed external hemorrhoid Thyroid disease Arthritis Surgical History History of colonoscopy Family History Mother No problems noted. Father No problems noted. Social History Housing: House Patient Tobacco Use Status: Never used Tobacco e-Cigarette/Vaping Use: Never Used service: No Current occupational status: retired Cognitive needs: No Hearing needs: No Vision needs: Yes (rx glasses) Results Reviewed Nephrology Results: Hgb, (12.0-16.0) 12.5 g/dl 02/12/25 WBC, (4.8-10.8) 7.1 X10*3/uL 02/12/25 Plt Count, (160-400) 215 X10*3/uL 02/12/25 Sodium, (135-145) 138 mmol/L 02/12/25 Potassium, (3.3-5.1) 4.8 mmol/L 02/12/25 Chloride, (96-108) 103 mmol/L 02/12/25 Carbon Dioxide, (22-29) 27 mmol/L 02/12/25 BUN, (9-16) 15 mg/dL 02/12/25 Creatinine, (0.5-1.4) 1.03 mg/dL 02/12/25 Calcium, (8.4-10.2) 9.3 mg/dL 02/12/25 Urine Protein, (Neg-Trace) Negative mg/dL 02/12/25 Assessment & Plan Assessment & Plan Orders: Orders US renal BI Today N18.9 - Chronic kidney disease, unspecified Creatinine Clearance Urine 24U Today N18.9 - Chronic kidney disease, unspecified UA and rflx microscopic Today R35.1 - Nocturia, R35.89 - Other polyuria Urine Culture Today R35.1 - Nocturia, R35.89 - Other polyuria Basic Metabolic Panel Today N18.9 - Chronic kidney disease, unspecified Coding
--- NOTE | 2025-03-09 15:23 | HO.NEPHOV_ITS ---
Vital Signs 03/09/25 15:09 Height 5 ft 5 in Weight 157 lb BMI 26.1 BP 102/62 Blood Pressure Location Lt brachial Position Sitting Intake Visit Reasons: INP: Chronic kidney disease-Conf Allergies morphine Allergy (Unknown, Verified 03/09/25 15:13) Unknown No Known Allergies (No Known Allergies*) Allergy (Verified 03/09/25 15:13) Medication List - Last Reconciled 03/09/25 by Shin Miller MD estradiol 2 mg PO DAILY Synthroid (levothyroxine) 150 mcg PO 6XW NS HPI Comments Details: - The patient is a 64-year-old female presenting with polyuria and noctiuria. - Polyuria with significant water intake, approximately 60 ounces daily. - Nocturia with multiple awakenings at night, no urgency or leakage. h/o alcohol intake - upto 3 shots at night - Chronic constipation reported. - Urinary incontinence for five years, urgency noted. - Urinary tract infection in January, burning on urination, increased frequency. - E. coli in urine cultures, sensitive to nitrofurantoin, - 50-pound weight loss over 5-6 months due to increased activity and dietary changes. . [facility] Medical History Thrombosed external hemorrhoid Thyroid disease Arthritis Surgical History History of colonoscopy Family History Mother No problems noted. Father No problems noted. Social History Housing: House Patient Tobacco Use Status: Never used Tobacco e-Cigarette/Vaping Use: Never Used service: No Current occupational status: retired Cognitive needs: No Hearing needs: No Vision needs: Yes (rx glasses) Review of Systems Const Denies fever(s) and Denies weight loss Card Denies chest pain Resp Denies cough and Denies hemoptysis GI Denies abdominal pain, Denies diarrhea and Denies nausea Musc Denies back pain Neuro Denies focal weakness Physical Exam Vital Signs: Last Vital Signs BP 102/62 03/09/25 15:09 BMI result Body Mass Index 26.1 Comfortable Neck supple no JVD. Lungs entry equal no rales. Heart S1-S2 heard no gallop or rub. Abdomen soft nontender. Neuro alert awake oriented. No asterixis. Extremities no edema. Results Reviewed Nephrology Results: Hgb, (12.0-16.0) 12.5 g/dl 02/12/25 WBC, (4.8-10.8) 7.1 X10*3/uL 02/12/25 Plt Count, (160-400) 215 X10*3/uL 02/12/25 Sodium, (135-145) 138 mmol/L 02/12/25 Potassium, (3.3-5.1) 4.8 mmol/L 02/12/25 Chloride, (96-108) 103 mmol/L 02/12/25 Carbon Dioxide, (22-29) 27 mmol/L 02/12/25 BUN, (9-16) 15 mg/dL 02/12/25 Creatinine, (0.5-1.4) 1.03 mg/dL 02/12/25 Calcium, (8.4-10.2) 9.3 mg/dL 02/12/25 Urine Protein, (Neg-Trace) Negative mg/dL 02/12/25 Assessment & Plan Assessment & Plan (1) Polyuria: Code(s): R35.89 - Other polyuria Category: Medical (2) Nocturia: Code(s): R35.1 - Nocturia Category: Medical Plan 1. Polyuria /Nocturia Could be due to excessive fluid intake and alcohol intake Will r/o DI - Conduct 24-hour urine collection. - Decrease alcohol and fluid intake as needed. Work up as outlines below 2. h/o UTI -REcheck Urine c/s 3/ h/o . Constipation 4. Mild decrease i eGFR probably has early stage 3 CKD due to age related nephron loss. 24 hr urine for Cr Cl Orders: Orders US renal BI Today N18.9 - Chronic kidney disease, unspecified Creatinine Clearance Urine 24U Today N18.9 - Chronic kidney disease, unspecified UA and rflx microscopic Today R35.1 - Nocturia, R35.89 - Other polyuria Urine Culture Today R35.1 - Nocturia, R35.89 - Other polyuria Basic Metabolic Panel Today N18.9 - Chronic kidney disease, unspecified Sodium Urine Random Today R35.89 - Other polyuria, R63.1 - Polydipsia Osmolality Urine Today R35.89 - Other polyuria, R63.1 - Polydipsia Coding Level of Care Code New Pt Level 4 (05101) Diagnoses Polyuria R35.89 Nocturia R35.1
--- OUTSIDE RECORDS SUMMARY | 2025-03-09 18:04 | XMS_ITS | Encounter Summary ---
Author Organization [facility] Address [address] [place] [address] Phone Care Team Providers Care Wood Scaler Name Role Phone Mateo Almaguer MD Primary Care Provider Encounter Details Date Type Department Care Team (Late st Contact Info) Description 10/14/2022 Procedure Pass [facility], Ct Scan - [address] [address] Social History Tobacco Use Types Packs/Day Years [...] 5:03 PM EDT Ivelisse Boateng RN * [place] Suicide Severity Rating Scale (Screener/Recent Self-Report) Question [...] on filedocumented in this encounter Care Teams Wood Scaler Relationship Specialty Start Date End Date Mateo Almaguer MD [address] [place] [address] [place] [address] PCP - General Internal Medicine 01/30/19 documented as of this encounter Additional Source Comments The information contained in this document represents components of the legal health record. It is not the complete legal health record.[facility]
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
--- OUTSIDE RECORDS SUMMARY | 2025-03-09 18:05 | XMS_ITS | Clinical Summary ---
Author Organization [facility] Address [address] [place] [address] Phone Care Team Providers Care Viscose Cellar Charge Hand Name Role Phone Mateo Fuentes MD Primary [...] times a day. 60 tablet 1 01/15/20 Active Additional Information Patient not taking.Reported on [...] 2004 VIRTUAL COLONOSCOPY 2004 PNEUMOCOCCAL VACCINES (50+ years) (1 of 1 - PCV) 2009 ZOSTER VACCINES (1 of 2) 2009 OSTEOPOROSIS SCREENING INITI AL (ONE-TIME) 2024 INFLUENZA VACCINE (#1) 2025 7, 02/16/2016 COVID-19 VACCINE (1 - 2023-2 5 season) 2025 SCREENING FOR DIABETES 10/14/2025 10/14/2022 COLONOSCOPY 05/07/2033 [...] this topic Medical Devices Implanted Type Area Senior Reliability Engineer Device Identifier Shelf Expiration Date Model / Serial / Lot Screw Left Knee Procedures Procedure Name Priority Date/Time Associated Diagnosis Comments ENDOSCOPY, COLON 05/07/2023 7:38 AM EST from Last 3 Months or Most Recently Relevant to Health Maintenance Results * ENDOSCOPY, COLON (05/07/2023 7:38 AM EST) Narrative Transcriptions Leroy Church MD, MPH - 05/07/2023 7:38 AM EST [facility] Patient Name: Siobhan Seay Attending MD:: LEROY CHURCH MD, Procedure Date: 05/07/2023 7:38 AM Date of : 1960 Age: 62 Admit Type: Outpatient Gender: Female Room: [place] [address] Referring MD: AIDEN FUENTES Exam Type: Colonoscopy [...] monitored continuously. The Olympus adult variable colonoscope [id number] #3 was introduced through the anus and advanced to the cecum, identified by appendiceal orifice andileocecal valve. The colonoscopy was performed without difficulty. The patient tolerated the procedurewell. The quality of the bowel preparation was evaluated using the BBPS ([place] Bowel Preparation Scale)with scores of: Right Colon [...] 7:38 AM Procedure Code(s): --- Professional --- 47228, Colonoscopy, flexible; with removal of tumor(s), polyp(s), or other lesion(s) by snare technique 18022, 59, Colonoscopy, flexible; with biopsy, single or multiple --- Technical --- 76122, Colonoscopy, flexible; with removal of tumor(s), polyp(s), or other lesion(s) by snare technique 05391, 59, Colonoscopy, flexible; with biopsy, single or multiple Diagnosis Code(s): --- Professional --- Z86.010, Personal history of colonic polyps D12.2, Benign neoplasm of ascending colon D12.8, Benign neoplasm of rectum K64.8, Other hemorrhoids --- Technical --- Z86.010, Personal history of colonic polyps D12.2, Benign neoplasm of ascending colon D12.8, Benign neoplasm of rectum K64.8, Other hemorrhoids CPT copyright 2021 [employer]. All rights reserved. The codes documented in this report are preliminary and upon accounting manager controller reviewmay be revised to meet current compliance requirements. Procedure Date: 05/07/2023 7:38:[address] [place] [address] Mateo Fuentes MD GI PROCEDURE ORDERABLES Edited Result - Final from Last 3 Months or Most Recently Relevant to Health Maintenance Insurance BLUE CROSS OUT OF STATE PPO BLUE CROSS OUT OF STATE PPO BLUE CROSS OUT OF STATE PPO BLUE CROSS OUT OF STATE PPO Advance Directives For more information, please contact: [phone] (9AM - 5PM [facility], Saturday-Saturday) Documents on File Type Date Recorded Patient Mathematics Faculty Member Expl anation Healthcare Proxy 05/08/2023 2:43 PM Care Teams Viscose Cellar Charge Hand Relationship Specialty Start Date End Date Mateo Fuentes MD [address] [place] [address] [place] [address] PCP - General Internal Medicine 01/30/19 Additional Source Comments The information contained in this document represents components of the legal health record. It is not the complete legal health record.[facility]
--- OUTSIDE RECORDS SUMMARY | 2025-03-09 18:05 | XMS_ITS | Patient Health Record ---
Author Organization [facility] Address [address] [address] Care Team Providers Care Technical Illustrations Map Inker Name Role Phone Demarco Parmar MD Primary Care Provider Martha Renae Unavailable [phone] Allergies Allergen (clinical drug ingredient) Drug/Non Drug [...] W/U Status Risk Notes Problem Plantar wart (76564504) Plantar wart (B07.0) Active confirmed Vital Signs Blood pressure diastolic 80 mm Hg 01/01/2025 Height 5ft6in in 01/01/2025 Blood pressure systolic 123 mm Hg 01/01/2025 Weight 155 lbs 01/01/2025 BMI 25.01 kg/m2 01/01/2025 Encounters Encounter Location Date Provider Diagnosis [facility] [address] [place] [address] 01/01/2025 Martha Lu Plantar wart B07.0 ; [...] Date Coverage End Date Medicare National Govt [employer] [address] [place] [address] [id number] Siobhan Seay Self - patient is the insured 4 [facility] [address] [place] [address] [id number] Siobhan Seay Self - patient is the [...]
--- OUTSIDE RECORDS SUMMARY | 2025-03-09 18:05 | XMS_ITS | Encounter Summary ---
Author Organization [facility] Address [address] [place] [address] Phone Care Team Providers Care Pin Sticker Name Role Phone Mateo Almaguer MD Primary Care Provider Encounter Details Date Type Department Care Team (Late st Contact Info) Description 05/07/2023 Procedure Pass [facility] Endoscopy Admitting Dept Virtual Department [address] [place] [address] Social History Tobacco Use Types Packs/Day Years [...] on filedocumented in this encounter Care Teams Pin Sticker Relationship Specialty Start Date End Date Mateo Almaguer MD [address] [place] [address] [place] [address] PCP - General Internal Medicine 01/30/19 documented as of this encounter Additional Source Comments The information contained in this document represents components of the legal health record. It is not the complete legal health record.[facility]
--- OUTSIDE RECORDS SUMMARY | 2025-03-09 18:05 | XMS_ITS | Patient Health Record ---
Author Organization [facility] Address [address] [place] [address] Care Team Providers Care Signal Worker Helper Name Role Phone Rosina (RETIRED) Mateo QUINN Primary Care Provide Dayo Negron [phone] Allergies Allergen (clinical drug ingredient) Drug/Non Drug [...] Problem Status W/U Status Risk Notes Problem [id number] Encounter for screening for malignant neoplasm of colon (Z12.11) Active confirmed Problem 120075370 Preprocedural examination (Z01.818) Active confirmed Problem 03350267 Constipation, unspecified constipation type (K59.00) Active confirmed Plan Of Treatment Future Test Test Name Order Date COLONOSCOPY 08/21/2017 Insurance Providers Payer Name Payer Address Payer Phone Subscriber Number Group Number Insured Name Patient Relationship to Insured Coverage Start Date Coverage End Date [employer] [address] [place] [address] [phone] [id number] ESTEPHANIA RILEY Self - patient is the insured Medical (General) History Medical History History ICD Code Denies [place],DM,CVA,Lung disease,renal dise ase Hypothyroidism Describes a negative colonoscopy in 2010 in [place] Takes Clonazepam for sleeping Surgical History Surgery Date(Month/Year) Knee surgery Left inguinal hernia repair Ankle surgery Cleft palate
== END 2025-03-09 15:31 | disposition home or self-care (01) ==
LOC: HO.HKA 15:04
PROVIDERS: PCP Internal Medicine; Referring Provider Internal Medicine; Visit Provider Internal Medicine Hypertension Specialist
DX: R35.89 Other polyuria (principal); R35.1 Nocturia
CPT/HCPCS: 99204

== ENCOUNTER 2025-03-09 15:04 | Outpatient (REF) | payer MEDICARE, SELFPAY ==
[2025-03-09 17:27] LABS: Appearance Urine Clear; Glucose Urine UA Negative (Negative); PH 7.0 (5.0-9.0); Specific Gravity - Urine <= 1.005 (1.005-1.025)
[2025-03-09 17:49] LABS: Anion Gap 9 (12-20); Blood Urea Nitrogen 14 mg/dL (9-16); Calcium 9.0 mg/dL (8.4-10.2); Carbon Dioxide 30 mmol/L (22-29); Chloride 106 mmol/L (96-108); Estimated Glomerular Filt Rate 54; Potassium 4.3 mmol/L (3.3-5.1); Sodium 141 mmol/L (135-145)
== END 2025-03-09 15:05 | disposition home or self-care (01) ==
LOC: HO.LAB 15:04
PROVIDERS: PCP Internal Medicine; Referring Provider Internal Medicine; Visit Provider Internal Medicine Hypertension Specialist
DX: R35.1 Nocturia (principal); R35.89 Other polyuria; R63.1 Polydipsia; N18.9 Chronic kidney disease, unspecified; Z87.440 Personal history of urinary (tract) infections
CPT/HCPCS: 36415; 80048; 81003; 83935; 84300; 87086; 99202

== ENCOUNTER 2025-03-12 11:21 | Outpatient (REF) | payer MEDICARE, SELFPAY ==
--- OUTSIDE RECORDS SUMMARY | 2025-03-12 13:11 | XMS_ITS | Patient Health Record ---
Author Organization [facility] Address [address] [place] [address] Care Team Providers Care Selling Specialist Name Role Phone Rosina (RETIRED) Mateo QUINN Primary Care Provide Dayo Negron [phone] Allergies Allergen (clinical drug ingredient) Drug/Non Drug [...] Problem Status W/U Status Risk Notes Problem [id number] Encounter for screening for malignant neoplasm of colon (Z12.11) Active confirmed Problem 388784578 Preprocedural examination (Z01.818) Active confirmed Problem 29058863 Constipation, unspecified constipation type (K59.00) Active confirmed Plan Of Treatment Future Test Test Name Order Date COLONOSCOPY 08/21/2017 Insurance Providers Payer Name Payer Address Payer Phone Subscriber Number Group Number Insured Name Patient Relationship to Insured Coverage Start Date Coverage End Date [employer] [address] [address] [place] [address] [id number] ESTEPHANIA RILEY Self - patient is the insured Medical (General) History Medical History History ICD Code Denies [place],DM,CVA,Lung disease,renal dise ase Hypothyroidism Describes a negative colonoscopy in 2010 in [place] Takes Clonazepam for sleeping Surgical History Surgery Date(Month/Year) Knee surgery Left inguinal hernia repair Ankle surgery Cleft palate
--- OUTSIDE RECORDS SUMMARY | 2025-03-12 13:11 | XMS_ITS | Patient Health Record ---
Author Organization [facility] Address [address] [facility] [address] Care Team Providers Care Slide Machine Tender Name Role Phone Demarco Parmar MD Primary Care Provider Martha Renae Unavailable [phone] Allergies Allergen (clinical drug ingredient) Drug/Non Drug [...] W/U Status Risk Notes Problem Plantar wart (24255559) Plantar wart (B07.0) Active confirmed Vital Signs Blood pressure diastolic 80 mm Hg 01/01/2025 Height 5ft6in in 01/01/2025 Blood pressure systolic 123 mm Hg 01/01/2025 Weight 155 lbs 01/01/2025 BMI 25.01 kg/m2 01/01/2025 Encounters Encounter Location Date Provider Diagnosis [facility] [address] [place] [address] 01/01/2025 Martha Lu Plantar wart B07.0 ; [...] Date Coverage End Date Medicare [facility] [address] [place] [address] [id number] Siobhan Seay Self - patient is the insured 4 [facility] [address] [place] [address] [id number] Siobhan Seay Self - patient is the [...]
--- OUTSIDE RECORDS SUMMARY | 2025-03-12 13:11 | XMS_ITS | Encounter Summary ---
Author Organization [facility] Address [address] [place] [address] Phone Care Team Providers Care Diabetes Trainer Name Role Phone Mateo Almaguer MD Primary Care Provider Encounter Details Date Type Department Care Team (Late st Contact Info) Description 05/07/2023 Procedure Pass [facility] Endoscopy Admitting Dept Virtual Department [address] [place] [address] Social History Tobacco Use Types Packs/Day Years [...] on filedocumented in this encounter Care Teams Diabetes Trainer Relationship Specialty Start Date End Date Mateo Almaguer MD [address] [place] [address] [place] [address] PCP - General Internal Medicine 01/30/19 documented as of this encounter Additional Source Comments The information contained in this document represents components of the legal health record. It is not the complete legal health record.[facility]
--- OUTSIDE RECORDS SUMMARY | 2025-03-12 13:11 | XMS_ITS | Clinical Summary ---
Author Organization [facility] Address [address] [place] [address] Phone Care Team Providers Care Ticker Maintainer Name Role Phone Mateo Fuentes MD Primary [...] this topic Medical Devices Implanted Type Area Remedial Masseur Device Identifier Shelf Expiration Date Model / Serial / Lot Screw Left Knee Procedures Procedure Name Priority Date/Time Associated Diagnosis Comments ENDOSCOPY, COLON 05/07/2023 7:38 AM EST from Last 3 Months or Most Recently Relevant to Health Maintenance Results * ENDOSCOPY, COLON (05/07/2023 7:38 AM EST) Narrative Transcriptions Leroy Church MD, MPH - 05/07/2023 7:38 AM EST [facility] [place] Patient Name: Siobhan Seay Attending MD:: LEROY CHURCH MD, Procedure Date: 05/07/2023 7:38 AM Date of : 1960 Age: 62 Admit Type: Outpatient Gender: Female Room: [place] [address] Referring MD: AIDEN FUENTES Exam Type: Colonoscopy [...] monitored continuously. The Olympus adult variable colonoscope [id number] #3 was introduced through the anus and advanced to the cecum, identified by appendiceal orifice andileocecal valve. The colonoscopy was performed without difficulty. The patient tolerated the procedurewell. The quality of the bowel preparation was evaluated using the BBPS ([place] Bowel Preparation Scale)with scores of: Right Colon [...] 7:38 AM Procedure Code(s): --- Professional --- 29028, Colonoscopy, flexible; with removal of tumor(s), polyp(s), or other lesion(s) by snare technique 93051, 59, Colonoscopy, flexible; with biopsy, single or multiple --- Technical --- 52365, Colonoscopy, flexible; with removal of tumor(s), polyp(s), or other lesion(s) by snare technique 85576, 59, Colonoscopy, flexible; with biopsy, single or multiple Diagnosis Code(s): --- Professional --- Z86.010, Personal history of colonic polyps D12.2, Benign neoplasm of ascending colon D12.8, Benign neoplasm of rectum K64.8, Other hemorrhoids --- Technical --- Z86.010, Personal history of colonic polyps D12.2, Benign neoplasm of ascending colon D12.8, Benign neoplasm of rectum K64.8, Other hemorrhoids CPT copyright 2021 [employer]. All rights reserved. The codes documented in this report are preliminary and upon managing director reviewmay be revised to meet current compliance requirements. Procedure Date: 05/07/2023 7:38:[address] [place] [address] Mateo Fuentes MD GI PROCEDURE ORDERABLES Edited Result - Final from Last 3 Months or Most Recently Relevant to Health Maintenance Insurance BLUE CROSS OUT OF STATE PPO BLUE CROSS OUT OF STATE PPO BLUE CROSS OUT OF STATE PPO BLUE CROSS OUT OF STATE PPO Advance Directives For more information, please contact: [phone] (9AM - 5PM [facility], Saturday-Saturday) Documents on File Type Date Recorded Patient Carpet Technician Expl anation Healthcare Proxy 05/08/2023 2:43 PM Care Teams Ticker Maintainer Relationship Specialty Start Date End Date Mateo Fuentes MD [address] [place] [address] [place] [address] PCP - General Internal Medicine 01/30/19 Additional Source Comments The information contained in this document represents components of the legal health record. It is not the complete legal health record.[facility]
--- OUTSIDE RECORDS SUMMARY | 2025-03-12 13:11 | XMS_ITS | Encounter Summary ---
Author Organization [facility] Address [address] [place] [address] Phone Care Team Providers Care Road Contractor Name Role Phone Mateo Almaguer MD Primary Care Provider Encounter Details Date Type Department Care Team (Late st Contact Info) Description 10/14/2022 Procedure Pass [facility], Ct Scan - [address] [address] Social History Tobacco Use Types Packs/Day Years [...] 5:03 PM EDT Ivelisse Boateng RN * [place] Suicide Severity Rating Scale (Screener/Recent Self-Report) Question [...] on filedocumented in this encounter Care Teams Road Contractor Relationship Specialty Start Date End Date Mateo Almaguer MD [address] [place] [address] [place] [address] PCP - General Internal Medicine 01/30/19 documented as of this encounter Additional Source Comments The information contained in this document represents components of the legal health record. It is not the complete legal health record.[facility]
[2025-03-12 13:58] LABS: Estimated Glomerular Filt Rate 54
[2025-03-12 14:39] LABS: Total Volume 24 Hour Urine 2900 mL
[2025-03-12 16:15] LABS: Creatinine, mg/dL 32.59
[2025-03-12 16:40] LABS: Creatinine (CrCl) 1.03 mg/dL (0.5-1.4)
== END 2025-03-12 11:22 | disposition home or self-care (01) ==
LOC: HO.LNP 11:21
PROVIDERS: Visit Provider Internal Medicine Hypertension Specialist
DX: N18.9 Chronic kidney disease, unspecified (principal)
CPT/HCPCS: 82565; 82575

== ENCOUNTER 2025-03-25 08:26 | Outpatient (REF) | payer MEDICARE, SELFPAY ==
--- NOTE | ~2025-03-25 | US_ITS ---
CLINICAL HISTORY: N18.9 - Chronic kidney disease, unspecified US Renal Comparison: None provided Findings: Right kidney normal size and echotexture, 9.5 cm length. Left kidney normal size and echotexture, 9.6 cm length. No hydronephrosis of either kidney. Normal color Doppler IMPRESSION: 1. Normal kidneys. This document has been electronically signed by: Demond Mahajan MD on 03/26/2025 08:42:46
== END 2025-03-25 08:27 | disposition home or self-care (01) ==
LOC: HO.US 08:26
PROVIDERS: PCP Internal Medicine; Visit Provider Internal Medicine Hypertension Specialist
DX: N18.9 Chronic kidney disease, unspecified (principal)
CPT/HCPCS: 76775

== ENCOUNTER → 2025-03-25 08:29 | Outpatient (BNV) | payer MEDICARE, SELFPAY | PROVIDERS: PCP Internal Medicine; Visit Provider Specialist | DX: R35.89 Other polyuria (principal); R63.1 Polydipsia; N18.9 Chronic kidney disease, unspecified | CPT/HCPCS: 76775 ==

== ENCOUNTER 2025-04-06 13:55 | Outpatient (AMB) | payer MEDICARE, SELFPAY ==
[2025-04-06 14:01] VITALS: BP 110/68; BMI 26.3
--- NOTE | 2025-04-06 14:01 | HO.NEPHOV ---
Vital Signs 04/06/25 14:01 Height 5 ft 5 in Weight 158 lb BMI 26.3 BP 110/68 Blood Pressure Location Rt brachial Position Sitting Intake Visit Reasons: 4 wks f/u with labs,vm left Worm Raiser Required: No Accompanied by: Self / Same As Patient Allergies morphine Allergy (Unknown, Verified 04/06/25 14:03) Unknown No Known Allergies (No Known Allergies*) Allergy (Verified 04/06/25 14:03) Medication List - Last Reconciled 04/06/25 by Shin Miller MD estradiol 2 mg PO DAILY Synthroid (levothyroxine) 150 mcg PO 6XW NS HPI Comments Details: - The patient is a 64-year-old female presenting with polyuria and nocturia. - Polyuria with significant water intake, approximately 60 ounces daily. - Nocturia with multiple awakenings at night, no urgency or leakage. h/o alcohol intake - upto 3 shots at night - Chronic constipation reported. - Urinary incontinence for five years, urgency noted. - Urinary tract infection in January, burning on urination, increased frequency. - E. coli in urine cultures, sensitive to nitrofurantoin, - 50-pound weight loss over 5-6 months due to increased activity and dietary changes. 04/06/25 - The patient is a 64-year-old female presenting with polyuria. - 24-hour urine collection showed 2900 mL output. Cr Cl 70 ml/mt - Kidney ultrasound normal, no obstruction. - Reports inadequate water intake h/o significant alcohol use. - Hypothyroidism managed with Synthroid, constipation persists. - Alcohol consumption includes wine and liqueur. [facility] Medical History Thrombosed external hemorrhoid Thyroid disease Arthritis Surgical History History of colonoscopy Family History Mother No problems noted. Father No problems noted. Social History Housing: House Patient Tobacco Use Status: Never used Tobacco e-Cigarette/Vaping Use: Never Used service: No Current occupational status: retired Cognitive needs: No Hearing needs: No Vision needs: Yes (rx glasses) Physical Exam Vital Signs: Last Vital Signs BP 110/68 04/06/25 14:01 BMI result Body Mass Index 26.3 Comfortable Neck supple no JVD. Lungs entry equal no rales. Heart S1-S2 heard no gallop or rub. Abdomen soft nontender. Neuro alert awake oriented. No asterixis. Extremities no edema. Results Reviewed Nephrology Results: Hgb, (12.0-16.0) 12.5 g/dl 02/12/25 WBC, (4.8-10.8) 7.1 X10*3/uL 02/12/25 Plt Count, (160-400) 215 X10*3/uL 02/12/25 Sodium, (135-145) 141 mmol/L 03/09/25 Potassium, (3.3-5.1) 4.3 mmol/L 03/09/25 Chloride, (96-108) 106 mmol/L 03/09/25 Carbon Dioxide, (22-29) 30 mmol/L H 03/09/25 BUN, (9-16) 14 mg/dL 03/09/25 Creatinine, (0.5-1.4) 1.03 mg/dL 03/12/25 Calcium, (8.4-10.2) 9.0 mg/dL 03/09/25 Urine Protein, (Neg-Trace) Negative mg/dL 03/09/25 Renal US 03/26/25 Assessment & Plan Assessment & Plan (1) Polyuria: Code(s): R35.89 - Other polyuria Category: Medical (2) Nocturia: Code(s): R35.1 - Nocturia Category: Medical Plan Polyuria /Nocturia Could be due to excessive fluid intake and alcohol intake Cannot exclude DI yet - 24-hour urine collection shows volume of 2900 and SG < 1.005 - Encouraged to Decrease alcohol Needs to maintain adequate fluid intake Might need water deprivation test if polyuria persists despite cutting down on alcohol h/o . 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 Orders: Orders Basic Metabolic Panel 3 Months N18.9 - Chronic kidney disease, unspecified, R35.89 - Other polyuria Coding Level of Care Code Est Pt Level 4 (76038) Diagnoses Polyuria R35.89 Nocturia R35.1
--- OUTSIDE RECORDS SUMMARY | 2025-04-06 18:41 | XMS_ITS | Data Portability ---
Author Organization [place] [facility] Address [address] [place] [address] Care Team Providers Care Travel Director Name Role Phone MAGDIEL FUENTES Referring Provider Assessment No assessment recorded. Plan of Treatment Reminders Order Date Submit Date Provider Last Modified By Organization Details Last Modified Time Details Appointments None recorded. Lab None recorded. Referral None recorded. Procedures None recorded. Surgeries excision hand mass (SURG) 2023 024 [address], [address], [place], [address], 4 09:17:58 Imaging XR, finger(s), 2 or more view - 2v lt index, assistant golf coach, rm 117 2023 024 [address] [facility], [address], [address], [place], [address], 4 12:10:37 Medication Orders None recorded. Patient [...] a4ajBk vP9nXo QUaueC m3YtLR FvZlgJ JJ8mAn HZtai3 1w1330 AC0Koa HSBWaL eUC8mr 84%3D INTERFACE [facility] [address], [place], [address], 01/14/2024 14:27:19 01/14/20 24 01/14/2024 XR, finge r(s), 2 or more view http:/ [email or web address] ?Encry pted=s hAaTro YD8dLq bEUv6g %2BXZw aYqtaq 0bqfl% 2Fg9IQ a4ajBk vP9nXo QUaueC m3YtLR FvZlgJ JJ8mAn HZtai3 5q7642 AC0Koa HSBWaL eUC8mr 84%3D INTERFACE [facility] [address], [place], [address], 01/14/2024 14:27:21 02/14/20 24 09/01/2021 imagi ng/di agnos tic resul t No observ ation record ed. [email or web address] Not Available 01/17 20:15:59 Result Notes Documentation Provider Name and Address Organization Details Recorded Time Xr, Finger(s), 2 Or More View : [email or web address]? Encrypted=wvXeRddKY2eIeiH Uv6g%2UMBowVvhcq7cgfd%2Fg 3STl0orBozV2oYfZRuezCu5Xn KTIwGzsPHK1aOuWBlbw49s474 1NI9SwnZVZCvYzRE6ai29%3D Not Available [facility] 01/14/2024 14:2 7:20 Xr, Finger(s), 2 Or More View : [email or web address] Encrypted=ftCgCzxJF1cVmfF Uv6g%0DDQnqFoqzc0mppq%2Fg 1WUl7kuSkbM0xWaJIwxdOb4Ja POMmEeqEHL3tJvBQmxw49h429 1KI4HbjPOBYqCiTB6ry45%3D Not Available [facility] 01/14/2024 14:2 7:22 Problems Name Problem SNOMED Code Status Onset Date Resolution Date Notes Provider Name and Address Organization Details Recorded Time Closed fracture of left lower leg 125343718573 88943 Active 2015 Problem Code: S82.892A ; Problem Code Type: ICD-10; Status: 'A'; Not Available [facility] 4 11:13:31 Traumatic dislocati on of ankle joint 181752223 Active 2015 Problem Code: S93.05XA ; Problem Code Type: ICD-10; Status: 'A'; Not Available [facility] 4 11:13:32 Closed bimalleol ar fracture 46101846 Active 2015 Problem Code: S82.845A ; Problem Code Type: ICD-10; Status: 'A'; Not Available [facility] 4 11:13:32 Closed fracture of left pilon 354923108710 40666 Active 2015 Problem Code: S82.872A ; Problem Code Type: ICD-10; Status: 'A'; Not Available [facility] 4 11:13:32 Closed fracture of lateral malleolus of left fibula 066120947496 23303 Active 2015 Problem Code: S82.62XD ; Problem Code Type: ICD-10; Status: 'A'; Not Available [facility] 4 11:13:32 Pain in finger of left hand 762480009468 105 Active 2023 Madeline Cortez PA-C [address] [facility] [address], [place], [address] , [facility] 4 08:18:16 Problem Notes None recorded. Medical Equipment None Reported. Allergies Allergen ID Allergen Name Allergen Category Reaction Reaction Severity Criticality Documentation Date Start Date Code Code System Note Provider Name and Address Organization Details Recorded Time 42670 morphine sulfate medicatio n Not available Not available Not available 08/19/20232015 77410 RxNorm Not Available [facility] 4 12:57:50 Medications Name Sig Start Date [...] Available oxycodone HCl-oxycodon e-ASA RX GIVEN AT [facility], AT THE TIME OF SURGERY 2018 active [...] Updated DateTime 08/12/2024 167.64 cm 28.7 kg/m2 49840.44 g HAYDEN ESCOBAR [facility] 08/12/2024 11:13:02 Date Recorded Body height Body mass index (BMI) Body weight Provider Name and Address Organization Details Last Updated DateTime 01/14/2024 167.64 cm 28.7 kg/m2 74541.44 g HAYDEN ESCOBAR [facility] 01/14/2024 14:09:58 Social History None recorded. Functional Status None recorded. Mental Status None recorded. Family History Nothing Reported. Medical History No medical history recorded. Gynecological HistoryNo gynecological history recorded. Obstetrics History GPAL:G 0 P 0 0 0 0 Past Encounters Encounter ID Performer Location Encounter Start Date Encounter Closed Date Diagnosis/Indication Diagnosis SNOMED-CT Code Diagnosis ICD10 Code Diagnosis IMO Codes Diagnosis Note [id number] Jeff Cagle MD [facility] [address] [place] [address] 01/14/2024 13:44:35 02/07/2024 10:07:40 Pain in finger of left hand 2954774616 18824 M79.645 Mass of sk in of finger of left hand 5937099494 5033893 R22.32 [id number] Corazon Dong, OTR/L,CHT [address], [place] [address] 06/15/2024 09:30:08 06/15/2024 10:22:29 Lump on finger 559571054 R22.32 [id number] This visit was completed today under the [...] distal and ulnar digit numbness Postoperative visit 1364 53365 Z48.89 [id number] Sutures are removed today without complicati on. [...] small ball for palmar massage with informlola n was provided. Per the surgeon , since [...] This office visit was complete at 20minutes. [id number] Corazon Dong, OTR/L,T [facility] - [address] [place] [address] 06/22/2024 11:31:53 06/22/2024 12:29:09 Mass of soft tissue 248632508 M79.89 [id number] The surgical wound is inspected and found [...] the future if there are additional concerns. [id number] MD BRUCE Larson [address] [place] [address] 08/12/2024 11:08:13 08/27/2024 18:03:25 Mass of hand 023614537 R22.32 [id number] Health Concerns Section Related Observation LastModified by Organization Detai ls LastModified Time None Recorded Concern Status LastModified by Organization Details LastModified Time None Recorded Advance Directives Directive None Recorded Payers Insurance Date Sequence Insurance Name Policy Number Policy Leslie Covered Member ID Leslie Member ID Guarantor Name 08/09/2024 1 [place] Siobhan Seay [id number] Siobhan Seay 08/27/2024 2 [place] [id number] Siobhan Seay [id number] Siobhan Seay 08/06/2024 2 [place]) Siobhan Seay 06/09/2024 1 [facility] PL[facility] TYPE I (HMO) [id number] Siobhan Seay [id number] Siobhan Seay Notes Date Note Type Note Provider Name and Address Organization Details Recorded Time 01/14/2024 text/html ROS as noted in the HPI Diagnosis: Mass left index pgfbso94-lglv-jyz female who presents complaining of numbness over [...] digitsX-rays ordered, obtained, and reviewed today at [facility]: [place] and lateral of the left index [...] of the mass. Jeff Cagle MD [address], [place], [address], [facility] 01/15/2024 16:26:26 06/15/2024 text/html This is [...] function. And advised on a home program. DESIERE Ly/Deepa,T [address], [place], [address], [facility] 06/15/2024 10:22:21 06/22/2024 text/html This is a 64-year-old woman who had the left index finger excision of a mass on the ulnar volar side of the digit On 06/02/2024 . She had initially been seen on 06/15/2024 for a suture removal but called today with concerns for the wound healing and returned to the office today per her request. DESIREE Ly/Deepa,CHT [address], [place], [address], [facility] 06/22/2024 12:23:50 08/12/2024 text/html ROS as noted in the HPI Diagnosis: Status post excision mass left index finger The [...] follow-up at her discretion. Jeff Cagle MD [address] [place], [place] [address] [address], [place], [address], [facility] 08/15/2024 14:18:34 OBGyn Episode No OBEpisode recorded.
--- OUTSIDE RECORDS SUMMARY | 2025-04-06 18:41 | XMS_ITS | Encounter Summary ---
Author Organization [facility] Address [address] [place] [address] Phone Care Team Providers Care Cardiovascular Surgical Tech Name Role Phone Mateo Almaguer MD Primary Care Provider Encounter Details Date Type Department Care Team (Late st Contact Info) Description 05/07/2023 Procedure Pass [facility] Endoscopy Admitting Dept Virtual Department [address] [place] [address] Social History Tobacco Use Types Packs/Day Years [...] on filedocumented in this encounter Care Teams Cardiovascular Surgical Tech Relationship Specialty Start Date End Date Mateo Almaguer MD [address] [place] [address] [place] [address] PCP - General Internal Medicine 01/30/19 documented as of this encounter Additional Source Comments The information contained in this document represents components of the legal health record. It is not the complete legal health record.[facility]
--- OUTSIDE RECORDS SUMMARY | 2025-04-06 18:41 | XMS_ITS | Patient Health Record ---
Author Organization [facility] Address [address] [place] [address] Care Team Providers Care Cia Agent Name Role Phone Rosina (RETIRED) Mateo QUINN Primary Care Provide Dayo Negron [phone] Allergies Allergen (clinical drug ingredient) Drug/Non Drug Allergy documented on EMR Reaction Allergy Type Onset Date Status Morphine Sulfate Unknown Drug Allergy Active Reason [...] Problem Status W/U Status Risk Notes Problem Screening for malignant neoplasm of colon (472577242) Encounter for screening for malignant neoplasm of colon (Z12.11) Active confirmed Problem Preprocedural examination (324855795213065) Preprocedural examination (Z01.818) Active confirmed Problem Constipation (51279307) Constipation, unspecified constipation type (K59.00) Active confirmed Plan Of Treatment Future Test Test Name Order Date COLONOSCOPY 08/21/2017 Insurance Providers Payer Name Payer Address Payer Phone Subscriber Number Group Number Insured Name Patient Relationship to Insured Coverage Start Date Coverage End Date [employer] [address] [place] [address] [id number] ESTEPHANIA RILEY Self - patient is the insured Medical (General) History Medical History History ICD Code Denies UT,DM,CVA,Lung disease,renal dise ase Hypothyroidism Describes a negative colonoscopy in 2010 in [place] Takes Clonazepam for sleeping Surgical History Surgery Date(Month/Year) Knee surgery Left inguinal hernia repair Ankle surgery Cleft palate
--- OUTSIDE RECORDS SUMMARY | 2025-04-06 18:41 | XMS_ITS | Encounter Summary ---
Author Organization [facility] Address [address] [place] [address] Phone Care Team Providers Care Bookmobile Driver Name Role Phone Mateo Almaguer MD Primary Care Provider Encounter Details Date Type Department Care Team (Late st Contact Info) Description 10/14/2022 Procedure Pass [facility], Ct Scan - [address] [address] Social History Tobacco Use Types Packs/Day Years [...] 5:03 PM EDT Ivelisse Boateng RN * [place] Suicide Severity Rating Scale (Screener/Recent Self-Report) Question [...] on filedocumented in this encounter Care Teams Bookmobile Driver Relationship Specialty Start Date End Date Mateo Almaguer MD [address] [place] [address] [place] [address] PCP - General Internal Medicine 01/30/19 documented as of this encounter Additional Source Comments The information contained in this document represents components of the legal health record. It is not the complete legal health record.[facility]
--- OUTSIDE RECORDS SUMMARY | 2025-04-06 18:42 | XMS_ITS | Patient Health Record ---
Author Organization [facility] Address [address] [facility] [place] [address] Care Team Providers Care Retail Loan Officer Name Role Phone Demarco Parmar MD Primary Care Provider Martha Renae Unavailable [phone] Allergies Allergen (clinical drug ingredient) Drug/Non Drug [...] W/U Status Risk Notes Problem Plantar wart (41025624) Plantar wart (B07.0) Active confirmed Vital Signs Blood pressure diastolic 80 mm Hg 01/01/2025 Height 5ft6in in 01/01/2025 Blood pressure systolic 123 mm Hg 01/01/2025 Weight 155 lbs 01/01/2025 BMI 25.01 kg/m2 01/01/2025 Encounters Encounter Location Date Provider Diagnosis [facility] [address] [place] [address] 01/01/2025 Martha Lu Plantar wart B07.0 ; [...] Date Coverage End Date Medicare [facility] [address] [place] [address] [id number] Siobhan Seay Self - patient is the insured 4 [facility] [address] [place] [address] [id number] Siobhan Seay Self - patient is the [...]
--- OUTSIDE RECORDS SUMMARY | 2025-04-06 18:42 | XMS_ITS | Clinical Summary ---
Author Organization [facility] Address [address] [place] [id number] Phone Care Team Providers Care Underwriter Solicitation Director Name Role Phone Mateo Fuentes MD Primary [...] 2025 7, 02/16/2016 COVID-19 VACCINE (1 - 2024-2 6 season) 2025 SCREENING FOR DIABETES 10/14/2025 10/14/2022 [...] this topic Medical Devices Implanted Type Area Bicycle Repairer Device Identifier Shelf Expiration Date Model / Serial / Lot Screw Left Knee Procedures Procedure Name Priority Date/Time Associated Diagnosis Comments ENDOSCOPY, COLON 05/07/2023 7:38 AM EST from Last 3 Months or Most Recently Relevant to Health Maintenance Results * ENDOSCOPY, COLON (05/07/2023 7:38 AM EST) Narrative Transcriptions Leroy Church MD, MPH - 05/07/2023 7:38 AM EST [facility] Patient Name: Siobhan Seay Attending MD:: LEROY CHURCH MD, Procedure Date: 05/07/2023 7:38 AM Date of : 1960 Age: 62 Admit Type: Outpatient Gender: Female Room: [place] [address] Referring MD: AIDEN FUENTES Exam Type: Colonoscopy [...] monitored continuously. The Olympus adult variable colonoscope [id number] #3 was introduced through the anus and advanced to the cecum, identified by appendiceal orifice andileocecal valve. The colonoscopy was performed without difficulty. The patient tolerated the procedurewell. The quality of the bowel preparation was evaluated using the BBPS ([place] Bowel Preparation Scale)with scores of: Right Colon [...] 7:38 AM Procedure Code(s): --- Professional --- 87741, Colonoscopy, flexible; with removal of tumor(s), polyp(s), or other lesion(s) by snare technique 13788, 59, Colonoscopy, flexible; with biopsy, single or multiple --- Technical --- 26687, Colonoscopy, flexible; with removal of tumor(s), polyp(s), or other lesion(s) by snare technique 63275, 59, Colonoscopy, flexible; with biopsy, single or multiple Diagnosis Code(s): --- Professional --- Z86.010, Personal history of colonic polyps D12.2, Benign neoplasm of ascending colon D12.8, Benign neoplasm of rectum K64.8, Other hemorrhoids --- Technical --- Z86.010, Personal history of colonic polyps D12.2, Benign neoplasm of ascending colon D12.8, Benign neoplasm of rectum K64.8, Other hemorrhoids CPT copyright 2021 [employer]. All rights reserved. The codes documented in this report are preliminary and upon capital campaign fundraiser reviewmay be revised to meet current compliance requirements. Procedure Date: 05/07/2023 7:38:[address] [place] [id number] Mateo Fuentes MD GI PROCEDURE ORDERABLES Edited Result - Final from Last 3 Months or Most Recently Relevant to Health Maintenance Insurance BLUE CROSS OUT OF STATE PPO BL[employer]OSS OUT OF STATE PPO BL[employer] OUT OF STATE PPO [employer] OUT OF STATE PPO Advance Directives For more information, please contact: [phone] (9AM - 5PM [facility], Saturday-Saturday) Documents on File Type Date Recorded Patient Station Inspector Expl anation Healthcare Proxy 05/08/2023 2:43 PM Care Teams Underwriter Solicitation Director Relationship Specialty Start Date End Date Mateo Fuentes MD [address] [place] [address] [place] [phone] PCP - General Internal Medicine 01/30/19 Additional Source Comments The information contained in this document represents components of the legal health record. It is not the complete legal health record.[facility]
== END 2025-04-06 14:23 | disposition home or self-care (01) ==
LOC: HO.HKA 13:56
PROVIDERS: PCP Internal Medicine; Visit Provider Internal Medicine Hypertension Specialist
DX: R35.89 Other polyuria (principal); R35.1 Nocturia
CPT/HCPCS: 99214

== ENCOUNTER → 2025-04-06 13:55 | Outpatient (BNVA) | payer MEDICARE, SELFPAY | PROVIDERS: PCP Internal Medicine; Visit Provider Internal Medicine Hypertension Specialist | DX: R35.89 Other polyuria (principal); R35.1 Nocturia | CPT/HCPCS: 99212 ==